=== PATIENT | male | born 1970 | race Caucasian/White ===

== ENCOUNTER 2023-07-07 17:38 | Inpatient (IN) | payer MEDICAID, SELFPAY ==
[2023-07-07 17:56] VITALS: BMI 26.0
--- NOTE | 2023-07-07 18:51 | PC.ADMIT ---
PT is a 53 year old undomiciled male that arrived on this unit at at 17:55 via stretcher from [facility] and was placed on 15 minute safety checks. Legal status: conditional voluntary. PT self presentded to the ED with SI and HI without means, plan or intent. PT refused to participate in the admission process and reports being too tired . PTs mental health hx is unclear from assessment but he has a documented hx of schizophrenia and has AH at baseline. PT was also recently incarcerated per crisis assessment. TOX + for cocaine. COVID NEG. Denies current SI/HI AH/VH, resting in bed, respirations even and unlabored. PT refused to sign legals or participate in safety tool and tx plan.
--- NOTE | 2023-07-07 19:22 | PC.NURSE ---
Skin check completed with Ronny Bowles RN , no contraband found. Scabbed scrapes noted on bilateral lower legs.
[2023-07-07] MEDS: OLANZapine 10 MG TABLET PO (22:51)
[2023-07-07] MEDS: traZODone HCL 50 MG TABLET PO (22:51)
[2023-07-08 08:17] LABS: MANUAL DIFF FLAG NO
[2023-07-08 08:20] LABS: Basophils Percent Auto 0.1 % (0-2); Eosinophils Absolute Auto 0.2 X10*3/uL (0.0-0.4); Eosinophils Percent Auto 2.5 % (0-4); Hematocrit 40.1 % (42.0-52.0); Hemoglobin 13.4 g/dl (14.0-18.0); Imm Gran Abs Auto 0.02 X10*3/uL (0.00-0.03); Imm Gran Pct Auto 0.3 % (0.0-0.4); Lymphocytes Absolute Auto 1.7 X10*3/uL (1.2-4.9); Lymphocytes Percent Auto 25.4 % (20-40); Mean Corpuscular HGB Conc 33.4 g/dl (31.0-36.0); Mean Corpuscular Hemoglobin 31.3 pg (27.0-33.0); Mean Corpuscular Volume 93.7 fL (80.0-98.0); Mean Platelet Volume 8.9 fL (9.4-12.4); Monocytes Absolute Auto 0.6 X10*3/uL (0.1-1.2); Monocytes Percent Auto 9.1 % (2-11); Neutrophils Absolute Auto 4.3 x10*3/uL (2.0-8.3); Neutrophils Percent Auto 62.6 % (45-73); Platelet Count 218 X10*3/uL (160-400); Red Blood Count 4.28 X10*6/uL (4.60-5.80); Red Cell Distribution Width 13.5 % (11.0-16.0); White Blood Count 6.8 X10*3/uL (4.8-10.8)
[2023-07-08 08:39] LABS: Estimated Average Glucose 114 mg/dL; Hemoglobin A1c % 5.6 % (<6.0)
[2023-07-08 08:40] VITALS: BP 137/78; PULSE 57; RESP 16; TEMP 36.6; O2SAT 95
[2023-07-08 08:42] LABS: Alanine Aminotransferase 28 U/L (0-40); Albumin Level 3.3 g/dL (3.5-5.0); Alkaline Phosphatase 89 U/L (39-117); Anion Gap 9 (12-20); Aspartate Amino Transferase 26 U/L (5-37); Bilirubin Direct 0.1 mg/dL (0.0-0.5); Bilirubin Total 0.4 mg/dL (0.0-1.0); Blood Urea Nitrogen 13 mg/dL (9-16); Carbon Dioxide 25 mmol/L (22-29); Chloride 113 mmol/L (96-108); Cholesterol 107 mg/dL (<200); Creatinine Clr Calc Pharmacy 113.4; Estimated Glomerular Filt Rate > 60; Glucose Fasting 134 mg/dL (60-99); HDL Cholesterol 40 mg/dL (>40); LDL Cholesterol Calculated 49 mg/dL (<100); Potassium 4.1 mmol/L (3.3-5.1); Sodium 143 mmol/L (135-145); Triglycerides 91 mg/dL (<150)
[2023-07-08 08:56] LABS: Free T4 (Free Thyroxine) 0.75 ng/dL (0.71-1.85); Thyroid Stimulating Hormone 0.57 uIU/mL (0.32-4.0)
[2023-07-08 09:10] LABS: Folate 5.9 ng/mL (> or = 4.0); Vitamin B12 305 pg/mL (200-900)
--- NOTE | 2023-07-08 09:55 | P.HPPS_ITS ---
HPI Date of Service: 07/08/23 Chief Complaint: Schizophrenia F29 Sources of Information: patient interviewed, chart reviewed and crisis/core team assessment reviewed HPI Subjective Notes: Conditional Voluntary and 3 Day Narrative: Patient is a 53-year-old male with history of schizophrenia, alcoholism, incarceration who presents for paranoid delusions with SI and HI. On approach patient is lying in bed, awake with covers over his eyes; he is irritable and says he does not want to talk much today but perhaps tomorrow. Discussed legal paperwork; pt agrees to continue taking Zyprexa which he received at the [facility] [place] [facility] Information is taken from other staff and notes. Patient irritable on admission but reports that he and his family are being targeted by gang bangers the bloods in retaliation for him having stolen millions of dollars. He endorses AH. He refers to a dude as the person's spear heading this persecution and that this person was at a camp were kids were involved and oral sex... Patient has HI towards this group of persecutory is though he does not name any of them. He says they are holding his mother and his sister hostage, drugging them; however he also says that team can call his sister for collateral information. He says he called her sometimes to check up on her and see how she is doing. Patient had made some comments about blowing up the city; he thinks people are laughing at him. Social work discussed case with his sister who said that he was diagnosed with schizophrenia when he was incarcerated a few years ago; has a history of substance abuse and can sometimes become aggressive, steal and lie. She does not remember him being paranoid in the past however. She gave a list of medications that he has been on, All last filled in February for 90 day supply (she does not know if he is adherent) Atorvastatin 80mg QD Hydrochlorothiazide 12.5mg QD Losartan 50mg QD Fluoxetine 40mg QD Amlodipine 10mg QD Metformin 500mg- last picked up October Past Psychiatric History: Past psychiatric hospitalizations Medical Evaluation Reviewed: Hospitalist Eva Pending COUNT INCLUDES [facility] Medical History (Updated 07/09/23 @ 13:05 by Go Boyle MD) Cocaine use disorder Alcohol use disorder Schizophrenia Polysubstance use disorder HLD (hyperlipidemia) HTN (hypertension) Family History: Deferred Social History: Currently homeless Has a sister who is supportive History of being incarcerated Substance History: Cocaine; alcohol Trauma History: Deferred Diagnostics Vital Signs (24Hr): Vital Signs - 24 hr 07/08/23 08:40 Temperature 97.9 F Pulse Rate 57 Respiratory Rate 16 Blood Pressure 137/78 Pulse Oximetry 95 Oxygen Delivery Method Room Air BMI result Body Mass Index 26.0 Labs 07/08/23 08:14 07/08/23 08:14 Labs: Laboratory Results - last 48 hr 07/08/23 08:14 WBC 6.8 RBC 4.28 L Hgb 13.4 L Hct 40.1 L MCV 93.7 MCH 31.3 MCHC 33.4 RDW 13.5 Plt Count 218 MPV 8.9 L Immature Gran % (Auto) 0.3 Neut % (Auto) 62.6 Lymph % (Auto) 25.4 [place] % (Auto) 9.1 Eos % (Auto) 2.5 Baso % (Auto) 0.1 Lymph # (Auto) 1.7 [place] # (Auto) 0.6 Eos # (Auto) 0.2 Baso # (Auto) 0.0 Abs Immat Gran (auto) 0.02 Absolute Neuts (auto) 4.3 Absolute Nucleated RBC 0.000 Nucleated RBC % (auto) 0.0 Sodium 143 Potassium 4.1 Chloride 113 H Carbon Dioxide 25 Anion Gap 9 L BUN 13 Creatinine 0.77 Estim Creat Clear Calc 113.4 Estimated GFR > 60 Fasting Glucose 134 H Estimat Average Glucose 114 Hemoglobin A1c % 5.6 Calcium 9.0 Total Bilirubin 0.4 Direct Bilirubin 0.1 AST 26 ALT 28 Alkaline Phosphatase 89 Total Protein 6.0 L Albumin 3.3 L Triglycerides 91 Cholesterol 107 LDL Cholesterol, Calc 49 HDL Cholesterol 40 L Vitamin B12 305 Folate 5.9 TSH 0.57 Free T4 0.75 Meds/Allergies Allergies Allergies Allergy/AdvReac Type Severity Reaction Status Date / Time Penicillins Allergy Rash Verified 07/07/23 17:57 Mental Status Exam Mental Status Exam Narrative: Pt is alert and oriented; behavior is irritable and guarded, marginally cooperative; patient is not in distress; dressed in hospital attire, balding; mood is described as irritable and affect congruent, constricted; eye contact limited; Speech is normal rate, volume and prosody and not pressured; some psychomotor agitation present; thought process is goal directed; Thought content is on paranoid delusions; yes to SI/HI; Positive for AH Patients insight and judgment impaired Assessment & Plan Assessment & Plan (1) Schizophrenia: Status: Acute Code(s): F20.9 - Schizophrenia, unspecified (2) Alcohol use disorder: Status: Acute Code(s): F10.90 - Alcohol use, unspecified, uncomplicated (3) Cocaine use disorder: Status: Acute Code(s): F14.10 - Cocaine abuse, uncomplicated (4) HTN (hypertension): Status: Acute Code(s): I10 - Essential (primary) hypertension (5) HLD (hyperlipidemia): Status: Acute Code(s): E78.5 - Hyperlipidemia, unspecified Plan Patient is a 53-year-old male with history of schizophrenia, alcoholism, incarceration who presents for paranoid delusions with SI and HI. On approach patient is lying in bed, awake with covers over his eyes; he is irritable and says he does not want to talk much today but perhaps tomorrow. Discussed legal paperwork; pt agrees to continue taking Zyprexa which he received at the [facility] for coming [place] [facility] Information is taken from other staff and notes. Patient irritable on admission but reports that he and his family are being targeted by gang bangers the bloods in retaliation for him having stolen millions of dollars. He endorses AH. He refers to a dude as the person's spear heading this persecution and that this person was at a camp were kids were involved and oral sex... Patient has HI towards this group of persecutory is though he does not name any of them. He says they are holding his mother and his sister hostage, drugging them; however he also says that team can call his sister for collateral information. He says he called her sometimes to check up on her and see how she is doing. Patient had made some comments about blowing up the city; he thinks people are laughing at him. Social work discussed case with his sister who said that he was diagnosed with schizophrenia when he was incarcerated a few years ago; has a history of substance abuse and can sometimes become aggressive, steal and lie. She does not remember him being paranoid in the past however. She gave a list of medications that he has been on, All last filled in February for 90 day supply (she does not know if he is adherent) Atorvastatin 80mg QD Hydrochlorothiazide 12.5mg QD Losartan 50mg QD Fluoxetine 40mg QD Amlodipine 10mg QD Metformin 500mg- last picked up October PLAN: CV Q 15 minute checks CIWA with p.r.n. Ativan Continue Zyprexa 10 mg q.h.s. Will add Zyprexa 5 mg in the morning Hold off on Prozac for now Will hold off on other home medications for hospitalist assessment Reviewed labs from sending facility: CBC, lytes, BUN/creatinine, LFTs WNL EKG with T-wave inversion however troponins x2 grossly WNL UDS cocaine Patient educated on: diagnosis Informed Consent: understands and further education needed Reason for continued inpatient stay Substantial Risk for: harm to self, harm to others and inability to function Statement Statement: I have reviewed the history and physical and performed a pertinent examination on my patient. No changes have occurred unless specified. If the History and Physical was not performed prior to admission, the Hospitalist's service will be consulted for completing the admission physical. Time Spent With Patient Time: Total time managing care of this patient today ____ minutes.
[2023-07-08] MEDS: LORazepam 1 MG TABLET PO (10:12)
[2023-07-08] MEDS: Acetaminophen 325 MG TABLET 650 MG PO (10:12)
--- NOTE | 2023-07-08 14:34 | HO.PM.IMCN ---
History of Present Illness Data of Consult Service Date: 07/08/23 Primary Care Provider: Unknown Physician HPI Reason for consult: Admission H&P Pt is a 53-year-old male with a PMH significant for?HTN, HLD, polysubstance use disorder, and schizophrenia not currently on home medications who is admitted to [facility] unit for increasing depression with vague SI and HI with thought to [place] up [place] city [place] city . Medical consult for admission H&P. ?Pt states he has no acute medical complaints at this time. Denies chest pain/palpitations. No shortness of breath. Denies fever, chills, nausea, vomiting, abdominal pain. No change to bowel or bladder habits. No lightheadedness or dizziness. Patient does report smoking 1 pack of cigarettes daily, and history of alcohol use though he does not further specify how much. Also reports recently smoking crack cocaine with fentanyl 2-3 days ago. Labs reviewed, largely unremarkable. Vital signs stable. Of note, pt is not completely cooperative with exam, refusing to fully participate. Review of Systems Review of Systems: Patient has no complaints at this time [facility] Medical History (Updated 07/08/23 @ 22:37 by AARON Dupree) Schizophrenia Polysubstance use disorder HLD (hyperlipidemia) HTN (hypertension) Social History Household Members: None Housing: Homeless Do you presently have visiting nurse or other home services: No Patient Tobacco Use Status: Former Tobacco user Smoked in Last 30 Days: No Use of substances other than those prescribed or required for medical reasons: Yes Substance Use Type: Crack/Cocaine Substance Use Frequency: Chronic Longstanding Last Used Substance: Just Prior to Admission Currently Displaying Signs/Symptoms of Drug Intoxication Withdrawal: No Any prior treatment program specific to substance use: No Do you feel safe in your current relationship?: No Current Relationship Advance Directives: No Advance Directives Information Provided: No Do you have thoughts of harming others: None Do you have a plan to hurt others: No Plan Recently lost weight without trying: No Nutrition Risks: No Nutritional Risk Poor oral hygiene: Yes Meds Allergies Allergy/AdvReac Type Severity Reaction Status Date / Time Penicillins Allergy Rash Verified 07/07/23 17:57 Active Medications: Current Medications Acetaminophen (Acetaminophen 325 Mg Tablet) 650 mg PO Q6H PRN PRN Reason: Headache/Pain Mild Scale (1-3) Last Admin: 07/08/23 10:12 Dose: 650 mg Al Hydroxide/Mg Hydroxide (Magnesium Hydrox/Alum Hydrox 30 Ml Oral.Susp) 30 ml PO Q6H PRN PRN Reason: Heartburn/Nausea Hydroxyzine HCl (Hydroxyzine Hcl 25 Mg Tablet) 25 mg PO Q6H PRN PRN Reason: Anxiety Lorazepam (Lorazepam 1 Mg Tablet) 1 mg PO Q2H PRN PRN Reason: CIWA 6-10 Last Admin: 07/08/23 10:12 Dose: 1 mg Lorazepam (Lorazepam 1 Mg Tablet) 2 mg PO Q2H PRN PRN Reason: CIWA 11 and above Magnesium Hydroxide (Milk Of Magnesia 30 Ml Oral.Susp) 30 ml PO DAILY PRN PRN Reason: Constipation Nicotine Polacrilex (Nicotine Polacrilex 2 Mg Gum) 4 mg BUCCAL Q2H PRN PRN Reason: Nicotine Cravings Olanzapine (Olanzapine 10 Mg Tablet) 10 mg PO BEDTIME RAJESH Olanzapine (Olanzapine 5 Mg Tablet) 5 mg PO DAILY RAJESH Trazodone HCl (Trazodone Hcl 50 Mg Tablet) 50 mg PO BEDTIME MRX1 PRN PRN Reason: Insomnia Last Admin: 07/07/23 22:51 Dose: 50 mg Physical Exam Vital Signs and Narrative: Vital Signs: Last Vital Signs Temp 97.9 F 07/08/23 08:40 Pulse 57 07/08/23 08:40 Resp 16 07/08/23 08:40 BP 137/78 07/08/23 08:40 Pulse Ox 95 07/08/23 08:40 O2 Del Method Room Air 07/08/23 08:40 BMI result Body Mass Index 26.0 General: AOx3, no acute distress Resp: CTA bilaterally CVS: S1, S2, RRR GI: +BS, NT, no distention Skin: Warm, dry Neuro: Cranial nerves II-XII grossly intact bilaterally. Motor grossly intact bilaterally Extremities: No edema Psych: Flat affect Results Labs 07/08/23 08:14 07/08/23 08:14 Labs: Laboratory Results - last 24 hr 07/08/23 08:14 MCV 93.7 MCH 31.3 MCHC 33.4 RDW 13.5 Plt Count 218 MPV 8.9 L Immature Gran % (Auto) 0.3 Neut % (Auto) 62.6 Lymph % (Auto) 25.4 [place] % (Auto) 9.1 Eos % (Auto) 2.5 Baso % (Auto) 0.1 Lymph # (Auto) 1.7 [place] # (Auto) 0.6 Eos # (Auto) 0.2 Baso # (Auto) 0.0 Abs Immat Gran (auto) 0.02 Absolute Neuts (auto) 4.3 Absolute Nucleated RBC 0.000 Nucleated RBC % (auto) 0.0 Anion Gap 9 L Estim Creat Clear Calc 113.4 Estimated GFR > 60 Fasting Glucose 134 H Estimat Average Glucose 114 Hemoglobin A1c % 5.6 Calcium 9.0 Total Bilirubin 0.4 Direct Bilirubin 0.1 AST 26 ALT 28 Alkaline Phosphatase 89 Total Protein 6.0 L Albumin 3.3 L Triglycerides 91 Cholesterol 107 LDL Cholesterol, Calc 49 HDL Cholesterol 40 L Vitamin B12 305 Folate 5.9 TSH 0.57 Free T4 0.75 Assessment and Plan (1) Medical clearance for psychiatric admission: Status: Acute Plan Pt is a 53-year-old male with a PMH significant for?HTN, HLD, polysubstance use disorder, and schizophrenia not currently on home medications who is admitted to [facility] unit for increasing depression with vague SI and HI with thought to blow up [place] city and [place] city . Medical consult for admission H&P. ?Pt states he has no acute medical complaints at this time. Mood disorder Plan as per Psychiatry Polysubstance use disorder Plan as per Psychiatry HTN Currently not on home meds BP reasonably controlled, not hypertensive HLD Currently not on home meds Thank you for allowing us to participate in the care of this patient. Signing off at this time. Please re-consult if any acute complaints or issues arise.
[2023-07-08 20:00] VITALS: BP 140/71; PULSE 72; TEMP 36.9
[2023-07-08] MEDS: traZODone HCL 50 MG TABLET PO (21:34)
[2023-07-08] MEDS: OLANZapine 10 MG TABLET PO (21:34)
[2023-07-09 08:25] VITALS: RESP 16
[2023-07-09] MEDS: FLUoxetine HCl 10 MG CAPSULE PO (10:08)
--- NOTE | 2023-07-09 13:10 | P.PNPSI_ITS ---
Subjective Subjective Date of Service: 07/09/23 Reason For Visit: Schizophrenia F29 Interim History: Met with patient; discussed with team Patient remains very guarded and difficult with which to engage. Glove Presser asked various questions but patient did not answer. Glove Presser then asked was there anything that account underwriter could help with. After a long silence patient said why me? Glove Presser tried to inquire but patient remained guarded. Then started talking to himself. He did take Zyprexa last night and wants to be on Prozac in the morning Mental Status Exam Mental Status Exam Narrative: Pt is alert and oriented; behavior is irritable and guarded, marginally cooperative; patient is not in distress; dressed in hospital attire, balding; mood is described as irritable and affect congruent, constricted; eye contact limited; Speech is normal rate, volume and prosody and not pressured; some psychomotor agitation present; thought process is goal directed; Thought content is on paranoid delusions; yes to SI/HI; Positive for AH Patients insight and judgment impaired Diagnostics Vital Signs (24Hr): Vital Signs - 24 hr 07/08/23 20:00 07/09/23 08:25 Temperature 98.4 F Pulse Rate 72 Respiratory Rate 16 Blood Pressure 140/71 H BMI result Body Mass Index 26.0 Labs 07/08/23 08:14 07/08/23 08:14 Labs: Laboratory Results - last 48 hr 07/08/23 08:14 WBC 6.8 RBC 4.28 L Hgb 13.4 L Hct 40.1 L MCV 93.7 MCH 31.3 MCHC 33.4 RDW 13.5 Plt Count 218 MPV 8.9 L Immature Gran % (Auto) 0.3 Neut % (Auto) 62.6 Lymph % (Auto) 25.4 [place] % (Auto) 9.1 Eos % (Auto) 2.5 Baso % (Auto) 0.1 Lymph # (Auto) 1.7 [place] # (Auto) 0.6 Eos # (Auto) 0.2 Baso # (Auto) 0.0 Abs Immat Gran (auto) 0.02 Absolute Neuts (auto) 4.3 Absolute Nucleated RBC 0.000 Nucleated RBC % (auto) 0.0 Sodium 143 Potassium 4.1 Chloride 113 H Carbon Dioxide 25 Anion Gap 9 L BUN 13 Creatinine 0.77 Estim Creat Clear Calc 113.4 Estimated GFR > 60 Fasting Glucose 134 H Estimat Average Glucose 114 Hemoglobin A1c % 5.6 Calcium 9.0 Total Bilirubin 0.4 Direct Bilirubin 0.1 AST 26 ALT 28 Alkaline Phosphatase 89 Total Protein 6.0 L Albumin 3.3 L Triglycerides 91 Cholesterol 107 LDL Cholesterol, Calc 49 HDL Cholesterol 40 L Vitamin B12 305 Folate 5.9 TSH 0.57 Free T4 0.75 Medications Medications Current Medications Acetaminophen (Acetaminophen 325 Mg Tablet) 650 mg PO Q6H PRN PRN Reason: Headache/Pain Mild Scale (1-3) Last Admin: 07/08/23 10:12 Dose: 650 mg Al Hydroxide/Mg Hydroxide (Magnesium Hydrox/Alum Hydrox 30 Ml Oral.Susp) 30 ml PO Q6H PRN PRN Reason: Heartburn/Nausea Fluoxetine HCl (Fluoxetine Hcl 10 Mg Capsule) 10 mg PO DAILY [facility] Last Admin: 07/09/23 10:08 Dose: 10 mg Hydroxyzine HCl (Hydroxyzine Hcl 25 Mg Tablet) 25 mg PO Q6H PRN PRN Reason: Anxiety Lorazepam (Lorazepam 1 Mg Tablet) 1 mg PO Q2H PRN PRN Reason: CIWA 6-10 Last Admin: 07/08/23 10:12 Dose: 1 mg Lorazepam (Lorazepam 1 Mg Tablet) 2 mg PO Q2H PRN PRN Reason: CIWA 11 and above Magnesium Hydroxide (Milk Of Magnesia 30 Ml Oral.Susp) 30 ml PO DAILY PRN PRN Reason: Constipation Nicotine Polacrilex (Nicotine Polacrilex 2 Mg Gum) 4 mg BUCCAL Q2H PRN PRN Reason: Nicotine Cravings Olanzapine (Olanzapine 10 Mg Tablet) 10 mg PO BEDTIME [facility] Last Admin: 07/08/23 21:34 Dose: 10 mg Olanzapine (Olanzapine 5 Mg Tablet) 5 mg PO DAILY [facility] Last Admin: 07/09/23 08:18 Dose: Not Given Trazodone HCl (Trazodone Hcl 50 Mg Tablet) 50 mg PO BEDTIME MRX1 PRN PRN Reason: Insomnia Last Admin: 07/08/23 21:34 Dose: 50 mg Allergies Allergies Allergy/AdvReac Type Severity Reaction Status Date / Time Penicillins Allergy Rash Verified 07/07/23 17:57 Assessment & Plan Assessment & Plan (1) Schizophrenia: Status: Acute Code(s): F20.9 - Schizophrenia, unspecified (2) Alcohol use disorder: Status: Acute Code(s): F10.90 - Alcohol use, unspecified, uncomplicated (3) Cocaine use disorder: Status: Acute Code(s): F14.10 - Cocaine abuse, uncomplicated (4) HTN (hypertension): Status: Acute Code(s): I10 - Essential (primary) hypertension (5) HLD (hyperlipidemia): Status: Acute Code(s): E78.5 - Hyperlipidemia, unspecified Plan Patient is a 53-year-old male with history of schizophrenia, alcoholism, incarceration who presents for paranoid delusions with SI and HI. On approach patient is lying in bed, awake with covers over his eyes; he is irritable and says he does not want to talk much today but perhaps tomorrow. Discussed legal paperwork; pt agrees to continue taking Zyprexa which he received at [facility] for coming to [facility]. Information is taken from other staff and notes. Patient irritable on admission but reports that he and his family are being targeted by gang bangers the bloods in retaliation for him having stolen millions of dollars. He endorses AH. He refers to a dude as the person's spear heading this persecution and that this person was at a camp were kids were involved and oral sex... Patient has HI towards this group of persecutory is though he does not name any of them. He says they are holding his mother and his sister hostage, drugging them; however he also says that team can call his sister for collateral information. He says he called her sometimes to check up on her and see how she is doing. Patient had made some comments about blowing up the city; he thinks people are laughing at him. Social work discussed case with his sister who said that he was diagnosed with schizophrenia when he was incarcerated a few years ago; has a history of substance abuse and can sometimes become aggressive, steal and lie. She does not remember him being paranoid in the past however. She gave a list of medications that he has been on, All last filled in February for 90 day supply (she does not know if he is adherent) Atorvastatin 80mg QD Hydrochlorothiazide 12.5mg QD Losartan 50mg QD Fluoxetine 40mg QD Amlodipine 10mg QD Metformin 500mg- last picked up October Hospital course: Patient remains guarded, with psychotic symptoms, internally preoccupied and difficult with which to engage. Will increase Zyprexa PLAN: CV Q 15 minute checks DC CIWA as patient is hardly scoring Increase to Zyprexa 15 mg q.h.s. Prozac 10 mg daily currently blood pressure, lipids and hemoglobin A1c WNL; thus will not restart statin, BP meds, metformin at this time Reviewed labs from sending facility: CBC, lytes, BUN/creatinine, LFTs WNL EKG with T-wave inversion however troponins x2 grossly WNL UDS cocaine Patient educated on: diagnosis and medication risk/benefits Informed Consent: further education needed Reason for continued inpatient stay Substantial Risk for: inability to function Time Spent With Patient Time: Total time managing care of this patient today ____ minutes.
[2023-07-09 16:19] VITALS: BP 138/79; PULSE 64; RESP 16; TEMP 36.2; O2SAT 96
[2023-07-09] MEDS: OLANZapine 7.5 MG TABLET 15 MG PO (19:49)
[2023-07-10 07:55] VITALS: BP 122/67; PULSE 59; RESP 16; TEMP 36.8; O2SAT 97
[2023-07-10] MEDS: FLUoxetine HCl 10 MG CAPSULE PO (08:23)
--- NOTE | 2023-07-10 08:52 | P.PNPSI_ITS ---
Subjective Subjective Date of Service: 07/10/23 Reason For Visit: Schizophrenia F29 Interim History: met with patient; discussed with team Patient remains isolated to his room and bed, quiet keeping to himself them internally preoccupied. On approach Patient lying in bed awake but reticent. Although still very difficult with which to engage, does not have the same angry edge as he did yesterday. Patient reports that he remains with SI, HI and AH. He does however say that the AH is a little bit better than yesterday. Patient agrees to increase Zyprexa. Mental Status Exam Mental Status Exam Narrative: Pt is alert and oriented; behavior is irritable and guarded, marginally cooperative; patient is not in distress; dressed in hospital attire, balding; mood is described as depressed and irritable and affect congruent, constricted; eye contact limited; Speech is soft; more psychomotor retardation today; thought process is goal directed; Thought content is on paranoid delusions; yes to SI/HI; Positive for AH Patients insight and judgment impaired Diagnostics Vital Signs (24Hr): Vital Signs - 24 hr 07/09/23 16:19 Temperature 97.2 F Pulse Rate 64 Respiratory Rate 16 Blood Pressure 138/79 Pulse Oximetry 96 Oxygen Delivery Method Room Air BMI result Body Mass Index 26.0 Labs 07/08/23 08:14 07/08/23 08:14 Labs: Laboratory Results - last 48 hr 07/08/23 08:14 Vitamin B12 305 Folate 5.9 TSH 0.57 Free T4 0.75 Medications Medications Current Medications Acetaminophen (Acetaminophen 325 Mg Tablet) 650 mg PO Q6H PRN PRN Reason: Headache/Pain Mild Scale (1-3) Last Admin: 07/08/23 10:12 Dose: 650 mg Al Hydroxide/Mg Hydroxide (Magnesium Hydrox/Alum Hydrox 30 Ml Oral.Susp) 30 ml PO Q6H PRN PRN Reason: Heartburn/Nausea Fluoxetine HCl (Fluoxetine Hcl 10 Mg Capsule) 10 mg PO DAILY [facility] Last Admin: 07/10/23 08:23 Dose: 10 mg Hydroxyzine HCl (Hydroxyzine Hcl 25 Mg Tablet) 25 mg PO Q6H PRN PRN Reason: Anxiety Lorazepam (Lorazepam 1 Mg Tablet) 1 mg PO Q2H PRN PRN Reason: CIWA 6-10 Last Admin: 07/08/23 10:12 Dose: 1 mg Lorazepam (Lorazepam 1 Mg Tablet) 2 mg PO Q2H PRN PRN Reason: CIWA 11 and above Magnesium Hydroxide (Milk Of Magnesia 30 Ml Oral.Susp) 30 ml PO DAILY PRN PRN Reason: Constipation Nicotine Polacrilex (Nicotine Polacrilex 2 Mg Gum) 4 mg BUCCAL Q2H PRN PRN Reason: Nicotine Cravings Olanzapine (Olanzapine 7.5 Mg Tablet) 15 mg PO BEDTIME RAJESH Last Admin: 07/09/23 19:49 Dose: 15 mg Trazodone HCl (Trazodone Hcl 50 Mg Tablet) 50 mg PO BEDTIME MRX1 PRN PRN Reason: Insomnia Last Admin: 07/08/23 21:34 Dose: 50 mg Allergies Allergies Allergy/AdvReac Type Severity Reaction Status Date / Time Penicillins Allergy Rash Verified 07/07/23 17:57 Assessment & Plan Assessment & Plan (1) Schizophrenia: Status: Acute Code(s): F20.9 - Schizophrenia, unspecified (2) Alcohol use disorder: Status: Acute Code(s): F10.90 - Alcohol use, unspecified, uncomplicated (3) Cocaine use disorder: Status: Acute Code(s): F14.10 - Cocaine abuse, uncomplicated (4) HTN (hypertension): Status: Acute Code(s): I10 - Essential (primary) hypertension (5) HLD (hyperlipidemia): Status: Acute Code(s): E78.5 - Hyperlipidemia, unspecified Plan Patient is a 53-year-old male with history of schizophrenia, alcoholism, incarceration who presents for paranoid delusions with SI and HI. On approach patient is lying in bed, awake with covers over his eyes; he is irritable and says he does not want to talk much today but perhaps tomorrow. Discussed legal paperwork; pt agrees to continue taking Zyprexa which he received at the [facility] for coming to [facility] [place]. Information is taken from other staff and notes. Patient irritable on admission but reports that he and his family are being targeted by ganjf mataers the bloods in retaliation for him having stolen millions of dollars. He endorses AH. He refers to a dude as the person's spear heading this persecution and that this person was at a camp were kids were involved and oral sex... Patient has HI towards this group of persecutory is though he does not name any of them. He says they are holding his mother and his sister hostage, drugging them; however he also says that team can call his sister for collateral information. He says he called her sometimes to check up on her and see how she is doing. Patient had made some comments about blowing up the city; he thinks people are laughing at him. Social work discussed case with his sister who said that he was diagnosed with schizophrenia when he was incarcerated a few years ago; has a history of substance abuse and can sometimes become aggressive, steal and lie. She does not remember him being paranoid in the past however. She gave a list of medications that he has been on, All last filled in February for 90 day supply (she does not know if he is adherent) Atorvastatin 80mg QD Hydrochlorothiazide 12.5mg QD Losartan 50mg QD Fluoxetine 40mg QD Amlodipine 10mg QD Metformin 500mg- last picked up October Hospital course: Patient remains guarded, with psychotic symptoms, internally preoccupied and difficult with which to engage. Will increase Zyprexa 07/10 Patient remains isolated to his room and bed, quiet keeping to himself them internally preoccupied. On approach Patient lying in bed awake but reticent. Although still very difficult with which to engage, does not have the same angry edge as he did yesterday. Patient reports that he remains with SI, HI and AH. He does however say that the AH is a little bit better than yesterday. Patient agrees to increase Zyprexa. -will leave it Zyprexa 15 mg for now as it has only been 1 day at higher dose; but will consider increasing soon if clinically indicated PLAN: CV Q 15 minute checks DC CIWA as patient is hardly scoring Continue Zyprexa 15 mg q.h.s. Prozac 10 mg daily currently blood pressure, lipids and hemoglobin A1c WNL; thus will not restart statin, BP meds, metformin at this time Reviewed labs from sending facility: CBC, lytes, BUN/creatinine, LFTs WNL EKG with T-wave inversion however troponins x2 grossly WNL UDS cocaine Patient educated on: diagnosis and medication risk/benefits Informed Consent: understands and further education needed Reason for continued inpatient stay Substantial Risk for: harm to self, harm to others and inability to function Time Spent With Patient Time: Total time managing care of this patient today ____ minutes.
[2023-07-10 17:37] VITALS: BP 145/85; PULSE 65; RESP 18; TEMP 36.5; O2SAT 99
[2023-07-10] MEDS: OLANZapine 7.5 MG TABLET 15 MG PO (20:48)
[2023-07-11] MEDS: FLUoxetine HCl 10 MG CAPSULE PO (09:00)
[2023-07-11 09:01] VITALS: BP 123/75; PULSE 56; RESP 16; TEMP 36.3; O2SAT 97
--- NOTE | 2023-07-11 10:22 | HO.PSYCHPN ---
Subjective Subjective Date of Service: 07/11/23 Reason For Visit: Schizophrenia F29 Interim History: met with patient; discussed with team Patient remains isolative, staying in bed by himself much of the day. Still quite an angry presentation however not so much with staff and was willing to talk a little more with account underwriter. Still has AH but maybe a little less. Sleeping well enough. Patient said that he still has some SI but he still has a lot of anger towards other people out there. Patient remains unintentionally vague about the specifics. He started saying blame me? Blame me? Am I to blame if the drugs are here? I am an addict.... stop Bringing the drugs into the [place].... Someone got angry and gave an order, a gang, to orchestrate some stuff... Because I took a million dollars? He said that there is someone who got angry at him so they did something or regard to do something... The account underwriter did not mention this, it seems likely these comments refer to paranoid delusional idea that his mother and sister are being held captive... Mental Status Exam Mental Status Exam Narrative: Pt is alert and oriented; behavior is irritable and guarded, marginally cooperative; patient is not in distress; dressed in hospital attire, balding; mood is described as depressed and irritable and affect congruent, constricted; eye contact limited; Speech is soft; more psychomotor retardation today; thought process is goal directed; Thought content is on paranoid delusions; yes to SI/HI; Positive for AH Patients insight and judgment impaired Diagnostics Vital Signs (24Hr): Vital Signs - 24 hr 07/10/23 17:37 07/11/23 09:01 Temperature 97.7 F 97.3 F Pulse Rate 65 56 Respiratory Rate 18 16 Blood Pressure 145/85 H 123/75 Pulse Oximetry 99 97 Oxygen Delivery Method Room Air Room Air BMI result Body Mass Index 26.0 Labs 07/08/23 08:14 07/08/23 08:14 Medications Medications Current Medications Acetaminophen (Acetaminophen 325 Mg Tablet) 650 mg PO Q6H PRN PRN Reason: Headache/Pain Mild Scale (1-3) Last Admin: 07/08/23 10:12 Dose: 650 mg Al Hydroxide/Mg Hydroxide (Magnesium Hydrox/Alum Hydrox 30 Ml Oral.Susp) 30 ml PO Q6H PRN PRN Reason: Heartburn/Nausea Fluoxetine HCl (Fluoxetine Hcl 10 Mg Capsule) 10 mg PO DAILY [facility]JESH Last Admin: 07/11/23 09:00 Dose: 10 mg Hydroxyzine HCl (Hydroxyzine Hcl 25 Mg Tablet) 25 mg PO Q6H PRN PRN Reason: Anxiety Magnesium Hydroxide (Milk Of Magnesia 30 Ml Oral.Susp) 30 ml PO DAILY PRN PRN Reason: Constipation Nicotine Polacrilex (Nicotine Polacrilex 2 Mg Gum) 4 mg BUCCAL Q2H PRN PRN Reason: Nicotine Cravings Olanzapine (Olanzapine 7.5 Mg Tablet) 15 mg PO BEDTIME RAJESH Last Admin: 07/10/23 20:48 Dose: 15 mg Trazodone HCl (Trazodone Hcl 50 Mg Tablet) 50 mg PO BEDTIME MRX1 PRN PRN Reason: Insomnia Last Admin: 07/08/23 21:34 Dose: 50 mg Allergies Allergies Allergy/AdvReac Type Severity Reaction Status Date / Time Penicillins Allergy Rash Verified 07/07/23 17:57 Assessment & Plan Assessment & Plan (1) Schizophrenia: Status: Acute Code(s): F20.9 - Schizophrenia, unspecified (2) Alcohol use disorder: Status: Acute Code(s): F10.90 - Alcohol use, unspecified, uncomplicated (3) Cocaine use disorder: Status: Acute Code(s): F14.10 - Cocaine abuse, uncomplicated (4) HTN (hypertension): Status: Acute Code(s): I10 - Essential (primary) hypertension (5) HLD (hyperlipidemia): Status: Acute Code(s): E78.5 - Hyperlipidemia, unspecified Plan Patient is a 53-year-old male with history of schizophrenia, alcoholism, incarceration who presents for paranoid delusions with SI and HI. On approach patient is lying in bed, awake with covers over his eyes; he is irritable and says he does not want to talk much today but perhaps tomorrow. Discussed legal paperwork; pt agrees to continue taking Zyprexa which he received at the [facility] for coming to [facility]. Information is taken from other staff and notes. Patient irritable on admission but reports that he and his family are being targeted by gang bangers the bloods in retaliation for him having stolen millions of dollars. He endorses AH. He refers to a dude as the person's spear heading this persecution and that this person was at a camp were kids were involved and oral sex... Patient has HI towards this group of persecutory is though he does not name any of them. He says they are holding his mother and his sister hostage, drugging them; however he also says that team can call his sister for collateral information. He says he called her sometimes to check up on her and see how she is doing. Patient had made some comments about blowing up the city; he thinks people are laughing at him. Social work discussed case with his sister who said that he was diagnosed with schizophrenia when he was incarcerated a few years ago; has a history of substance abuse and can sometimes become aggressive, steal and lie. She does not remember him being paranoid in the past however. She gave a list of medications that he has been on, All last filled in February for 90 day supply (she does not know if he is adherent) Atorvastatin 80mg QD Hydrochlorothiazide 12.5mg QD Losartan 50mg QD Fluoxetine 40mg QD Amlodipine 10mg QD Metformin 500mg- last picked up October Hospital course: Patient remains guarded, with psychotic symptoms, internally preoccupied and difficult with which to engage. Will increase Zyprexa 07/10 Patient remains isolated to his room and bed, quiet keeping to himself them internally preoccupied. On approach Patient lying in bed awake but reticent. Although still very difficult with which to engage, does not have the same angry edge as he did yesterday. Patient reports that he remains with SI, HI and AH. He does however say that the AH is a little bit better than yesterday. Patient agrees to increase Zyprexa. -will leave it Zyprexa 15 mg for now as it has only been 1 day at higher dose; but will consider increasing soon if clinically indicated 07/11 Patient remains isolative, staying in bed by himself much of the day. Still quite an angry presentation however not so much with staff and was willing to talk a little more with account underwriter. Still has AH but maybe a little less. Sleeping well enough. Patient said that he still has some SI but he still has a lot of anger towards other people out there. Patient remains unintentionally vague about the specifics. He started saying blame me? Blame me? Am I to blame if the drugs are here? I am an addict.... stop Bringing the drugs into the [place].... Someone got angry and gave an order, a gang, to orchestrate some stuff... Because I took a million dollars? He said that there is someone who got angry at him so they did something or regard to do something... The account underwriter did not mention this, it seems likely these comments refer to paranoid delusional idea that his mother and sister are being held captive... Increasing Zyprexa to 20 mg PLAN: CV Q 15 minute checks DC CIWA as patient is hardly scorin Increased to Zyprexa 20 mg q.h.s. Prozac 10 mg daily currently blood pressure, lipids and hemoglobin A1c WNL; thus will not restart statin, BP meds, metformin at this time Reviewed labs from sending facility: CBC, lytes, BUN/creatinine, LFTs WNL EKG with T-wave inversion however troponins x2 grossly WNL UDS cocaine Patient educated on: diagnosis, medication risk/benefits and substance abuse Informed Consent: does not understand and further education needed Reason for continued inpatient stay Substantial Risk for: inability to function Time Spent With Patient Time: Total time managing care of this patient today ____ minutes.
[2023-07-11 17:20] VITALS: BP 133/85; PULSE 83; RESP 16; TEMP 36.4; O2SAT 97
[2023-07-11] MEDS: traZODone HCL 50 MG TABLET PO (21:01)
[2023-07-11] MEDS: OLANZapine 10 MG TABLET 20 MG PO (21:01)
[2023-07-12 08:00] VITALS: BP 139/74; PULSE 59; TEMP 36.6; O2SAT 97
[2023-07-12] MEDS: FLUoxetine HCl 10 MG CAPSULE PO (08:50)
--- NOTE | 2023-07-12 16:40 | P.PNPSI_ITS ---
Subjective Subjective Date of Service: 07/12/23 Reason For Visit: Schizophrenia F29 Interim History: Met with patient; discussed with team Patient up in out of the room, in the milieu. He says he is doing much better. He says all AH have ceased that he is no longer hearing voices; he denies any SI and says he is no longer feeling angry at others, without any HI, saying you have to let your anger go... No paranoid delusions expressed. Patient would like discharge. He wants discharge immediately. He says I am better... I do not hurt myself, I do not hurt anyone else... I have no voices... I am better, let me go. Patient grudgingly accepts that he will need to remain on the unit for another day to continue demonstrating that he remains stable. Plans to go back to [place], another signed that paranoid delusions have resolved. Mental Status Exam Mental Status Exam Narrative: Pt is alert and oriented; behavior is more friendly and cooperative, initially calm but remains prone to becoming irritable; patient is not in distress; dressed in hospital attire, balding; mood is described as IM better... and affect congruent, brighter, expressive; eye contact limited; Speech is regular volume, rate and prosody; no psychomotor retardation; thought process is goal directed; Thought content is on feeling better, ready for discharge; no SI/HI; no expressed delusional thinking; denies any AVH. Patients insight and judgment impaired but much improved, at baseline and adequate Diagnostics Vital Signs (24Hr): Vital Signs - 24 hr 07/11/23 17:20 07/12/23 08:00 Temperature 97.5 F 97.9 F Pulse Rate 83 59 Respiratory Rate 16 Blood Pressure 133/85 139/74 Pulse Oximetry 97 97 Oxygen Delivery Method Room Air Room Air BMI result Body Mass Index 26.0 Labs 07/08/23 08:14 07/08/23 08:14 Medications Medications Current Medications Acetaminophen (Acetaminophen 325 Mg Tablet) 650 mg PO Q6H PRN PRN Reason: Headache/Pain Mild Scale (1-3) Last Admin: 07/08/23 10:12 Dose: 650 mg Al Hydroxide/Mg Hydroxide (Magnesium Hydrox/Alum Hydrox 30 Ml Oral.Susp) 30 ml PO Q6H PRN PRN Reason: Heartburn/Nausea Fluoxetine HCl (Fluoxetine Hcl 10 Mg Capsule) 10 mg PO DAILY RAJESH Last Admin: 07/12/23 08:50 Dose: 10 mg Hydroxyzine HCl (Hydroxyzine Hcl 25 Mg Tablet) 25 mg PO Q6H PRN PRN Reason: Anxiety Magnesium Hydroxide (Milk Of Magnesia 30 Ml Oral.Susp) 30 ml PO DAILY PRN PRN Reason: Constipation Naloxone HCl (Naloxone Hcl Nasal Take Home 4 Mg [place]) 8 mg NOSTRILALT ONCE ONE Stop: 07/13/23 07:01 Nicotine Polacrilex (Nicotine Polacrilex 2 Mg Gum) 4 mg BUCCAL Q2H PRN PRN Reason: Nicotine Cravings Olanzapine (Olanzapine 10 Mg Tablet) 20 mg PO BEDTIME RAJESH Last Admin: 07/11/23 21:01 Dose: 20 mg Trazodone HCl (Trazodone Hcl 50 Mg Tablet) 50 mg PO BEDTIME MRX1 PRN PRN Reason: Insomnia Last Admin: 07/11/23 21:01 Dose: 50 mg Allergies Allergies Allergy/AdvReac Type Severity Reaction Status Date / Time Penicillins Allergy Rash Verified 07/07/23 17:57 Assessment & Plan Assessment & Plan (1) Schizophrenia: Status: Acute Code(s): F20.9 - Schizophrenia, unspecified (2) Alcohol use disorder: Status: Acute Code(s): F10.90 - Alcohol use, unspecified, uncomplicated (3) Cocaine use disorder: Status: Acute Code(s): F14.10 - Cocaine abuse, uncomplicated (4) HTN (hypertension): Status: Acute Code(s): I10 - Essential (primary) hypertension (5) HLD (hyperlipidemia): Status: Acute Code(s): E78.5 - Hyperlipidemia, unspecified Plan Patient is a 53-year-old male with history of schizophrenia, alcoholism, incarceration who presents for paranoid delusions with SI and HI. On approach patient is lying in bed, awake with covers over his eyes; he is irritable and says he does not want to talk much today but perhaps tomorrow. Discussed legal paperwork; pt agrees to continue taking Zyprexa which he received at the [facility] for coming to [facility] [place]. Information is taken from other staff and notes. Patient irritable on admission but reports that he and his family are being targeted by gang bangers the bloods in retaliation for him having stolen millions of dollars. He endorses AH. He refers to a dude as the person's spear heading this persecution and that this person was at a camp were kids were involved and oral sex... Patient has HI towards this group of persecutory is though he does not name any of them. He says they are holding his mother and his sister hostage, drugging them; however he also says that team can call his sister for collateral information. He says he called her sometimes to check up on her and see how she is doing. Patient had made some comments about blowing up the [employer]; he thinks people are laughing at him. Social work discussed case with his sister who said that he was diagnosed with schizophrenia when he was incarcerated a few years ago; has a history of substance abuse and can sometimes become aggressive, steal and lie. She does not remember him being paranoid in the past however. She gave a list of medications that he has been on, All last filled in February for 90 day supply (she does not know if he is adherent) Atorvastatin 80mg QD Hydrochlorothiazide 12.5mg QD Losartan 50mg QD Fluoxetine 40mg QD Amlodipine 10mg QD Metformin 500mg- last picked up October Hospital course: Patient remains guarded, with psychotic symptoms, internally preoccupied and difficult with which to engage. Will increase Zyprexa 07/10 Patient remains isolated to his room and bed, quiet keeping to himself them internally preoccupied. On approach Patient lying in bed awake but reticent. Although still very difficult with which to engage, does not have the same angry edge as he did yesterday. Patient reports that he remains with SI, HI and AH. He does however say that the AH is a little bit better than yesterday. Patient agrees to increase Zyprexa. -will leave it Zyprexa 15 mg for now as it has only been 1 day at higher dose; but will consider increasing soon if clinically indicated 07/11 Patient remains isolative, staying in bed by himself much of the day. Still quite an angry presentation however not so much with staff and was willing to talk a little more with global technical writer. Still has AH but maybe a little less. Sleeping well enough. Patient said that he still has some SI but he still has a lot of anger towards other people out there. Patient remains unintentionally vague about the specifics. He started saying blame me? Blame me? Am I to blame if the drugs are here? I am an addict.... stop Bringing the drugs into the [place].... Someone got angry and gave an order, a gang, to orchestrate some stuff... Because I took a million dollars? He said that there is someone who got angry at him so they did something or regard to do something... The global technical writer did not mention this, it seems likely these comments refer to paranoid delusional idea that his mother and sister are being held captive... Increasing Zyprexa to 20 mg 07/12 Patient up in out of the room, in the milieu. He says he is doing much better. He says all AH have ceased that he is no longer hearing voices; he denies any SI and says he is no longer feeling angry at others, without any HI, saying you have to let your anger go... No paranoid delusions expressed. Patient would like discharge. He wants discharge immediately. He says I am better... I do not hurt myself, I do not hurt anyone else... I have no voices... I am better, let me go. Patient grudgingly accepts that he will need to remain on the unit for another day to continue demonstrating that he remains stable. Plans to go back to [place], another signed that paranoid delusions have resolved. Based on reporting from his sister, this appears to be patient's baseline. He is not interested in any further treatment at all but says he will continue taking medications which he reports has been helpful. Patient does not want help with any appointments or services but just to discharge home. Patient of course remains at risk for relapse and mood decompensation and given his itinerant lifestyle and struggles with substance abuse, he will likely at some point again wander into unsafe situations. However, his psychotic and mood symptoms have resolved and he is not in imminent risk for harm to self or others. He is already irritable that he has to remain on the unit another day and as he is not looking to engage with any further treatment, staying on the unit longer will not prove useful. Request for discharge honored. PLAN: CV Q 15 minute checks DC CIWA as patient is hardly scorin Continue Zyprexa 20 mg q.h.s. Prozac 10 mg daily currently blood pressure, lipids and hemoglobin A1c WNL; thus will not restart statin, BP meds, metformin at this time Reviewed labs from sending facility: CBC, lytes, BUN/creatinine, LFTs WNL EKG with T-wave inversion however troponins x2 grossly WNL UDS cocaine Patient educated on: diagnosis and medication risk/benefits Informed Consent: understands Reason for continued inpatient stay Substantial Risk for: stable for discharge Time Spent With Patient Time: Total time managing care of this patient today ____ minutes.
--- NOTE | 2023-07-12 17:07 | PM.PSYDC ---
DS: Providers Provider Date of Service: 07/13/23 Date of admission: 07/07/23 17:38 Date of discharge: 07/13/23 Primary care physician: Unknown Physician Attending physician on admission: Go Boyle Consults: 07/07/23 18:03 Consult to Hospitalist Routine Comment: Consulting Provider: Hospitalist Reason For Exam: OSH admission Attending physician on discharge: Go Boyle DS: Diagnosis Discharge Diagnosis (1) Schizophrenia: Status: Acute (2) Alcohol use disorder: Status: Acute (3) Cocaine use disorder: Status: Acute (4) HTN (hypertension): Status: Acute (5) HLD (hyperlipidemia): Status: Acute DS: Medications Discharge Medications Home Medications: Previous Rx's Medication Instructions Recorded fluoxetine 10 mg capsule 10 mg PO DAILY 30 days #30 caps 07/12/23 olanzapine 20 mg tablet 20 mg PO BEDTIME 30 days #30 tabs 07/12/23 olanzapine 20 mg tablet 20 mg PO BEDTIME 30 days #30 tabs 07/12/23 trazodone 50 mg tablet 50 mg PO BEDTIME PRN Insomnia 30 07/12/23 days #30 tabs Mental Status Exam Mental Status Exam Narrative: Pt is alert and oriented; behavior is more friendly and cooperative; patient is not in distress; dressed in casual attire, balding; mood is described as euthymic and affect congruent, brighter, expressive; eye contact appropriate; Speech is regular volume, rate and prosody; no psychomotor retardation; thought process is goal directed; Thought content is on discharge; no SI/HI; no expressed delusional thinking; denies any AVH. Patients insight and judgment impaired but much improved, at baseline and adequate Data Data Completed and Pending Completed studies during hospitalization [Text1]: 07/08/23 08:14 WBC 6.8 RBC 4.28 L Hgb 13.4 L Hct 40.1 L MCV 93.7 MCH 31.3 MCHC 33.4 RDW 13.5 Plt Count 218 MPV 8.9 L Immature Gran % (Auto) 0.3 Neut % (Auto) 62.6 Lymph % (Auto) 25.4 [place] % (Auto) 9.1 Eos % (Auto) 2.5 Baso % (Auto) 0.1 Lymph # (Auto) 1.7 [place] # (Auto) 0.6 Eos # (Auto) 0.2 Baso # (Auto) 0.0 Abs Immat Gran (auto) 0.02 Absolute Neuts (auto) 4.3 Absolute Nucleated RBC 0.000 Nucleated RBC % (auto) 0.0 Sodium 143 Potassium 4.1 Chloride 113 H Carbon Dioxide 25 Anion Gap 9 L BUN 13 Creatinine 0.77 Estim Creat Clear Calc 113.4 Estimated GFR > 60 Fasting Glucose 134 H Estimat Average Glucose 114 Hemoglobin A1c % 5.6 Calcium 9.0 Total Bilirubin 0.4 Direct Bilirubin 0.1 AST 26 ALT 28 Alkaline Phosphatase 89 Total Protein 6.0 L Albumin 3.3 L Triglycerides 91 Cholesterol 107 LDL Cholesterol, Calc 49 HDL Cholesterol 40 L Vitamin B12 305 Folate 5.9 TSH 0.57 Free T4 0.75 DS: Summary Hospital Course Hospital Course: Patient is a 53-year-old male with history of schizophrenia, alcoholism, incarceration who presents for paranoid delusions with SI and HI. On approach patient is lying in bed, awake with covers over his eyes; he is irritable and says he does not want to talk much today but perhaps tomorrow. Discussed legal paperwork; pt agrees to continue taking Zyprexa which he received at the [facility] for coming to [facility]. Information is taken from other staff and notes. Patient irritable on admission but reports that he and his family are being targeted by gang bangers the bloods in retaliation for him having stolen millions of dollars. He endorses AH. He refers to a dude as the person's spear heading this persecution and that this person was at a camp were kids were involved and oral sex... Patient has HI towards this group of persecutory is though he does not name any of them. He says they are holding his mother and his sister hostage, drugging them; however he also says that team can call his sister for collateral information. He says he called her sometimes to check up on her and see how she is doing. Patient had made some comments about blowing up the city; he thinks people are laughing at him. Social work discussed case with his sister who said that he was diagnosed with schizophrenia when he was incarcerated a few years ago; has a history of substance abuse and can sometimes become aggressive, steal and lie. She does not remember him being paranoid in the past however. Hospital course: On admission, patient highly irritable, guarded and with psychotic symptoms. Mostly kept to himself. Detoxed without incident. Patient was willing to continue Zyprexa and Prozac which were both restarted. Patient remains guarded, with psychotic symptoms, internally preoccupied and difficult with which to engage. Will increase Zyprexa. Initially patient was very difficult with which to engage and he did not want to talk about history of comorbid illness/medication; however his blood pressure and blood sugar were grossly WNL so medications such as metformin and antihypertensives were not restarted. 07/10 Patient remains isolated to his room and bed, quiet keeping to himself them internally preoccupied. On approach Patient lying in bed awake but reticent. Although still very difficult with which to engage, does not have the same angry edge as he did yesterday. Patient reports that he remains with SI, HI and AH. He does however say that the AH is a little bit better than yesterday. Patient agrees to increase Zyprexa. -will leave it Zyprexa 15 mg for now as it has only been 1 day at higher dose; but will consider increasing soon if clinically indicated 07/11 Patient remains isolative, staying in bed by himself much of the day. Still quite an angry presentation however not so much with staff and was willing to talk a little more with conventional underwriter. Still has AH but maybe a little less. Sleeping well enough. Patient said that he still has some SI but he still has a lot of anger towards other people out there. Patient remains unintentionally vague about the specifics. He started saying blame me? Blame me? Am I to blame if the drugs are here? I am an addict.... stop Bringing the drugs into the [place].... Someone got angry and gave an order, a gang, to orchestrate some stuff... Because I took a million dollars? He said that there is someone who got angry at him so they did something or regard to do something... The conventional underwriter did not mention this, it seems likely these comments refer to paranoid delusional idea that his mother and sister are being held captive... Increasing Zyprexa to 20 mg 07/12 Patient up in out of the room, in the milieu. He says he is doing much better. He says all AH have ceased that he is no longer hearing voices; he denies any SI and says he is no longer feeling angry at others, without any HI, saying you have to let your anger go... No paranoid delusions expressed. Patient would like discharge. He wants discharge immediately. He says I am better... I do not hurt myself, I do not hurt anyone else... I have no voices... I am better, let me go. Patient grudgingly accepts that he will need to remain on the unit for another day to continue demonstrating that he remains stable. Plans to go back to [place], another signed that paranoid delusions have resolved. Based on reporting from his sister, this appears to be patient's baseline. He is not interested in any further treatment at all but says he will continue taking medications which he reports has been helpful. Patient does not want help with any appointments or services but just to discharge. Patient of course remains at risk for relapse and mood decompensation and given his itinerant lifestyle and struggles with substance abuse, he will likely at some point again wander into unsafe situations. However, his psychotic and mood symptoms have resolved and he is not in imminent risk for harm to self or others. He is already irritable that he has to remain on the unit another day and as he is not looking to engage with any further treatment, staying on the unit longer will not prove useful. Request for discharge honored. Time spent discussing smoking cessation with patient: 3 to 10 minutes Status at Discharge Functional status at discharge: independent ambulation Overall status at discharge: patient is back to baseline Time Spent with Patient Time attestation: Total time managing care of this patient today ____ minutes. Time spent: Less than 30 minutes Discharge Plan Discharge Anticipated Discharge Date/Time: 07/13/23 11:00 Patient Disposition: Home, Self-Care Discharge Diagnosis: schizophrenia, paranoid type Referrals: Physician,Unknown J [Primary Care Provider] - 1 Week Discharge Medications: New olanzapine 20 mg tablet 20 mg PO BEDTIME 30 Days Qty: 30 0RF olanzapine 20 mg tablet 20 mg PO BEDTIME 30 Days Qty: 30 0RF fluoxetine 10 mg Capsule 10 mg PO DAILY 30 Days Qty: 30 0RF trazodone 50 mg Tablet 50 mg PO BEDTIME PRN (Reason: Insomnia) 30 Days Qty: 30 0RF Discharge Orders: Discharge Order (Routine); Ordered 07/13/23 Ordered By: Go Boyle Diet: Regular diet Activity on Discharge: As tolerated Stand Alone Forms: Patient Portal Discharge page Care Plan Goals: Maintain mood and safe behaviors Take medications as prescribed Continue to pursue sobriety Practice coping skills Continue with outpatient providers and reach out to them as needed Health Concerns: Mood stability and behaviors Sobriety History of hypertension History of hyperglycemia Plan of Treatment: Follow up with your PCP, psychiatric provider and other outpatient providers regarding above concerns Take medications as prescribed Assessment: Risk assessment at time of discharge:? Patient was interviewed prior to discharge and found to be fully oriented and without any SI or HI. Patient has improved insight and judgment and wants to continue treatment. Patient is not in imminent risk of harm to self or others and has a safety plan that includes presenting to the closest ER or calling 911 if feeling unsafe.? Patient has been observed closely by nursing and unit staff throughout admission; patient has not engaged in any behaviors that suggest dangerousness to self or others and has demonstrated appropriate behaviors and impulse control
[2023-07-12 17:14] VITALS: BP 144/77; PULSE 63; RESP 16; TEMP 36.8; O2SAT 95
[2023-07-12 21:40] VITALS: BP 144/79; PULSE 59; TEMP 37
[2023-07-12] MEDS: OLANZapine 10 MG TABLET 20 MG PO (21:41)
[2023-07-12] MEDS: traZODone HCL 50 MG TABLET PO (21:42)
[2023-07-13 06:00] VITALS: RESP 16
[2023-07-13] MEDS: FLUoxetine HCl 10 MG CAPSULE PO (08:25)
[2023-07-13] MEDS: Naloxone HCl Nasal TAKE HOME 4 MG SPRAY 8 MG NOSTRILALT (08:26)
== END 2023-07-13 10:51 | disposition home or self-care (01) | DRG 750 ==
PROVIDERS: Psychiatry & Neurology Psychiatry; Admitting Provider Psychiatry & Neurology Psychiatry; Visit Provider Psychiatry & Neurology Psychiatry
DX: F20.0 Paranoid schizophrenia (principal); R45.851 Suicidal ideations; Z91.148 Patient's other noncompliance with medication regimen for other reason; E78.5 Hyperlipidemia, unspecified; F14.10 Cocaine abuse, uncomplicated; F10.20 Alcohol dependence, uncomplicated; I10 Essential (primary) hypertension; Z87.891 Personal history of nicotine dependence; Z79.899 Other long term (current) drug therapy
CPT/HCPCS: 36415; 80053; 80061; 80076; 82607; 82746; 83036; 84439; 84443; 85025

== ENCOUNTER → 2023-07-07 17:38 | Outpatient (BNV) | payer MEDICAID, SELFPAY | PROVIDERS: Admitting Provider Psychiatry & Neurology Psychiatry; Visit Provider Student in an Organized Health Care Education/Training Program | DX: Z02.2 Encounter for examination for admission to residential institution (principal) | CPT/HCPCS: 99429 ==

== ENCOUNTER → 2023-07-07 17:38 | Outpatient (BNV) | payer MEDICAID, SELFPAY | PROVIDERS: Admitting Provider Psychiatry & Neurology Psychiatry; Visit Provider Psychiatry & Neurology Psychiatry | DX: F20.0 Paranoid schizophrenia (principal); F14.10 Cocaine abuse, uncomplicated; F10.90 Alcohol use, unspecified, uncomplicated; I10 Essential (primary) hypertension; E78.5 Hyperlipidemia, unspecified | CPT/HCPCS: 90792; 99231; 99232; 99238 ==

== ENCOUNTER 2024-08-23 13:34 | Inpatient (IN) | payer MEDICAID, SELFPAY ==
[2024-08-23 13:40] VITALS: BP 158/102; PULSE 74; TEMP 36.3; O2SAT 99
[2024-08-23 13:45] VITALS: BMI 26.8
--- OUTSIDE RECORDS SUMMARY | 2024-08-23 15:51 | XMS_ITS | Clinical Summary ---
Author Organization [facility] Address [address] [place] [address] Phone Care Team Providers Care Milk Truck Driver Name Role Phone Physician, No Pcp Primary Care Provider Unavaila ble Allergies No known active allergies Medications No known medications Encounters Date Type Department Care Team Description 08/21/2024 7:55 PM EST - 08/23/2024 1:15 PM EST Emergency [facility] Emergency [address] [place] [id number] Addy Hatfield, Dragan Polanco MD Millay, Scot A, MD Kenton, Mark A, MD Schizoaffective disorder, depressive type (CMS/HCC) (Primary Dx); Suicidal ideation [facility] Last 3 Months Medical History Medical History Date Comments Schizoaffective disorder, depressive type (CMS/H CC) per EMR HTN (hypertension) per EMR Cocaine abuse ([facility]) per EMR Social History Tobacco Use Types Packs/Day Years Used Date Smoking Tobacco: Every Day Cigarettes Smokeless Tobacco: Never Tobacco Cessation:Ready to Q uit: Not Asked; Counseling Given: Not Answered Alcohol Use Standard Drinks/Week Comments Not Currently 0 (1 standard drink = 0.6 oz pur e alcohol) Sex and Gender Information Value Date Recorded Sex Assigned at Male 08/21/2024 8:27 PM EST Gender Identity Male 08/21/2024 8:27 PM EST Sexual Orientation Straight 08/21/2024 8: 27 PM EST Job Start Date Occupation Industry Not on file Not on file Not on file Obstetrics History Last Filed Vital Signs Vital Sign Reading Time Taken Comments Blood Pressure 156/88 08/23/2024 8:31 AM EST Pulse 76 08/23/2024 8:31 AM EST Temperature 36.4 ??C (97.6 ??F) 08/23/2024 8:31 AM ES T Respiratory Rate 18 08/23/2024 8:31 AM EST Oxygen Saturation 99% 08/23/2024 8:31 AM EST Inhaled Oxygen Concentration - - Weight 90.7 kg (200 lb) 08/21/2024 8:10 PM EST Height 182.9 cm (6') 08/21/2024 8:10 PM EST Body Mass Index 27.12 08/21/2024 8:10 PM EST Plan of Treatment Health Maintenance Due Date Last Done Comments Pneumococcal Vaccine: Pediat rics (0 to 5 Years) and At-Risk Patients (6 to 64 Years) (1 of 2 - PCV) 02/04/1978 DTaP,Tdap,and Td Vaccines (1 - Tdap) 02/04/1991 Hepatitis B Vaccines (1 of 3 - 19+ 3-dose series) 02/04/1991 Zoster Vaccines (1 of 2) 02/04/2022 Cholesterol Screening (Lipid Panel) 08/19/2023 Colorectal Cancer Screening: Colonoscopy 08/19/2023 Depression Screening 08/19/2023 HIV Screening 08/19/2023 Hepatitis C Screening 08/19/2023 Social Influencers of Health Screening 08/19/2023 COVID-19 Vaccine (1 - 2023-2 5 season) 2024 Influenza Vaccine (#1) 2024 HIB Vaccines Aged Out No longer eligi ble based on patient's age to complete this topic HPV Vaccines Aged Out No longer eligi ble based on patient's age to complete this topic Hepatitis A Vaccines Aged Out No long er eligible based on patient's age to complete this topic IPV Vaccines Aged Out No longer eligi ble based on patient's age to complete this topic MMR Vaccines Aged Out No longer eligi ble based on patient's age to complete this topic Meningococcal ACWY Vaccine Aged Out N o longer eligible based on patient's age to complete this topic RSV Immunization Patients Un nichole 20 months Aged Out No longer eligible b ased on patient's age to complete this topic Varicella Vaccines Aged Out No longer eligible based on patient's age to complete this topic Procedures Procedure Name Priority Date/Time Associated Diagnosis Comments ECG 12-LEAD Routine 08/22/2024 6:09 PM EST CBC WITH AUTO DIFFERENTIAL STAT 08/21/2024 8:18 PM EST SALICYLATE LEVEL STAT 08/21/2024 8:18 PM EST ACETAMINOPHEN LEVEL STAT 08/21/2024 8 :18 PM EST ETHANOL STAT 08/21/2024 8:18 PM EST THYROID STIMULATING HORMONE STAT 08/21/2024 8:18 PM EST COMPREHENSIVE METABOLIC PANEL STAT 08/21/2024 8:18 PM EST CBC AND DIFFERENTIAL STAT 08/21/2024 8:18 PM EST METHADONE SCREEN, URINE STAT Add-on 08/21/2024 8:05 PM EST PHENCYCLIDINE, URINE STAT Add-on 08/21/2024 8:05 PM EST BUPRENORPHINE SCREEN, URINE STAT Add-on 08/21/2024 8:05 PM EST DRUG ABUSE SCREEN 8A PANEL, URINE STAT 08/21/2024 8:05 PM EST from Last 3 Months Results * (ABNORMAL) CBC auto differential (08/21/2024 8:18 PM EST) [facility] WBC 7.2 4.8 - 10.8 K/mcL LAB HEMETOLOGY METHOD 08/21/2024 8:37 PM [facility] RBC 4.20(L) 4.50 - 5.50 M/mcL LAB HEMETOLOGY METHOD 08/21/2024 8:37 PM [facility] Hemoglobin 13.1(L) 13.5 - 17.5 g/dL LAB HEMETOLOGY METHOD 08/21/2024 8:37 PM [facility] Hematocrit 39.2(L) 42.0 - 54.0 % LAB HEMETOLOGY METHOD 08/21/2024 8:37 PM [facility] MCV 93.1 79.0 - 98.0 FL LAB HEMETOLOGY METHOD 08/21/2024 8:37 PM [facility] MCH 31.1 27.0 - 32.0 pcg LAB HEMETOLOGY METHOD 08/21/2024 8:37 PM [facility] MCHC 33.4 32.0 - 37.0 g/dL LAB HEMETOLOGY METHOD 08/21/2024 8:37 PM [facility] RDW 13.5 11.0 - 15.0 % LAB HEMETOLOGY METHOD 08/21/2024 8:37 PM [facility] Platelets 251 130 - 400 K/mcL LAB HEMETOLOGY METHOD 08/21/2024 8:37 PM [facility] MPV 9.3 7.0 - 11.0 FL LAB HEMETOLOGY METHOD 08/21/2024 8:37 PM [facility] NRBC 0.0 <1.0 % LAB HEMETOLOGY METHOD 08/21/2024 8:37 PM [facility] NRBC Absolute 0.00 <0.10 K/mcL LAB HEMETOLOGY METHOD 08/21/2024 8:37 PM [facility] Neutrophils Relative 55.3 % LAB HEMETOLOGY METHOD 08/21/2024 8:37 PM [facility] Lymphocytes Relative 30.2 % LAB HEMETOLOGY METHOD 08/21/2024 8:37 PM [facility] Monocytes Relative 11.2 % LAB HEMETOLOGY METHOD 08/21/2024 8:37 PM [facility] Eosinophils Relative 3.1 % LAB HEMETOLOGY METHOD 08/21/2024 8:37 PM [facility] Basophils Relative 0.1 % LAB HEMETOLOGY METHOD 08/21/2024 8:37 PM [facility] Immature Granulocytes Relative 0.1 % LAB HEMETOLOGY METHOD 08/21/2024 8:37 PM EST [facility] Neutrophils Absolute 3.96 1.50 - 7.00 K/mcL LAB HEMETOLOGY METHOD 08/21/2024 8:37 PM EST [facility] Lymphocytes Absolute 2.16 1.00 - 5.00 K/mcL LAB HEMETOLOGY METHOD 08/21/2024 8:37 PM EST [facility] Monocytes Absolute 0.80 0.20 - 1.00 K/[facility] LAB HEMETOLOGY METHOD 08/21/2024 8:37 PM EST [facility] Eosinophils Absolute 0.22 0.00 - 0.50 K/[facility] LAB HEMETOLOGY METHOD 08/21/2024 8:37 PM EST [facility] Basophils Absolute 0.01 0.00 - 0.20 K/mcL LAB HEMETOLOGY METHOD 08/21/2024 8:37 PM EST [facility] Immature Granulocytes Absolute 0.01 0.00 - 0.03 K/[facility] LAB HEMETOLOGY METHOD 08/21/2024 8:37 PM EST [facility] Blood Venous blood specimen / Unknown Venipuncture / Unknown 08/21/2024 8:18 PM EST 08/21/2024 8:31 PM EST Agusto Rouse MD LAB BLOOD ORDERABLES [facility] [address] [place] [address], * Thyroid stimulating hormone (TSH) (08/21/2024 8:18 PM EST) TSH 0.46 0.40 - 4.00 mcIU/mL LAB CHEMISTRY METHOD 08/21/2024 9:13 PM EST [facility] Blood Venous blood specimen / Unknown Venipuncture / Unknown 08/21/2024 8:18 PM EST 08/21/2024 8:31 PM EST Agusto Rouse MD LAB BLOOD ORDERABLES Performing Organization Address City/[facility]/ZIP Co de Phone Number [facility] [address] [place] [address], [place] [phone] * Ethanol level (Alcohol level) (08/21/2024 8:18 PM EST) Ethanol Level <3 0 - 10 mg/dL LAB CHEMISTRY METHOD 08/21/2024 9:05 PM EST [facility] Blood Venous blood specimen / Unknown Venipuncture / Unknown 08/21/2024 8:18 PM EST 08/21/2024 8:31 PM EST Agusto Rouse MD LAB BLOOD ORDERABLES Performing Organization Address [facility]/ZIP Co de Phone Number [facility] [address] [place] [address], * (ABNORMAL) Acetaminophen level (08/21/2024 8:18 PM EST) Acetaminophen Level <2.0(L) 10.0 - 30.0 mcg/mL LAB CHEMISTRY METHOD 08/21/2024 9:10 PM EST [facility] Blood Venous blood specimen / Unknown Venipuncture / Unknown 08/21/2024 8:18 PM EST 08/21/2024 8:31 PM EST Agusto Rouse MD LAB BLOOD ORDERABLES Performing Organization Address City/[facility]/ZIP Co de Phone Number [facility] [address] [place] [address], [place] [phone] * (ABNORMAL) Salicylate level (08/21/2024 8:18 PM EST) Salicylate Level 1.9(L) 2.0 - 29.0 mg/dL LAB CHEMISTRY METHOD 08/21/2024 9:05 PM EST [facility] Blood Venous blood specimen / Unknown Venipuncture / Unknown 08/21/2024 8:18 PM EST 08/21/2024 8:31 PM EST Narrative Authorizing Provider Result Fazal Rouse MD LAB BLOOD ORDERABLES [facility] [address] [place] [address], * (ABNORMAL) Comprehensive metabolic panel (CMP) (08/21/2024 8:18 PM EST) Sodium 140 133 - 145 mmol/L LAB CHEMISTRY METHOD 08/21/2024 9:10 PM [facility] Potassium 3.8 3.5 - 5.5 mmol/L LAB CHEMISTRY METHOD 08/21/2024 9:10 PM [facility] Chloride 110 96 - 110 mmol/L LAB CHEMISTRY METHOD 08/21/2024 9:10 PM [facility] CO2 28 21 - 32 mmol/L LAB CHEMISTRY METHOD 08/21/2024 9:10 PM [facility] Anion Gap 2(L) 3 - 11 LAB CHEMISTRY METHOD 08/21/2024 9:10 PM [facility] Glucose 92 70 - 100 mg/dL LAB CHEMISTRY METHOD 08/21/2024 9:10 PM [facility] BUN 13 5 - 25 mg/dL LAB CHEMISTRY METHOD 08/21/2024 9:10 PM [facility] Creatinine 0.85 0.70 - 1.30 mg/dL LAB CHEMISTRY METHOD 08/21/2024 9:10 PM [facility] eGFR 105 >=60 mL/min/1. 73m2 LAB CHEMISTRY METHOD 08/21/2024 9:10 PM [facility] Comment:Calculation based on the??Chronic Kidney Disease Epidemiology Collaboration (CKD-EPI) equation refit??without adjustment for race. BUN/Creatinine Ratio 15.3 LAB CHEMISTRY METHOD 08/21/2024 9:10 PM [facility] Calcium 8.7 8.5 - 10.5 mg/dL LAB CHEMISTRY METHOD 08/21/2024 9:10 PM [facility] AST (SGOT) 28 10 - 42 unit/L LAB CHEMISTRY METHOD 08/21/2024 9:10 PM [facility] ALT (SGPT) 23 10 - 60 unit/L LAB CHEMISTRY METHOD 08/21/2024 9:10 PM [facility] Alkaline Phosphatase 125(H) 42 - 121 unit/L LAB CHEMISTRY METHOD 08/21/2024 9:10 PM [facility] Total Protein 6.3 6.0 - 8.0 g/dL LAB CHEMISTRY METHOD 08/21/2024 9:10 PM [facility] Albumin 3.3 3.2 - 5.0 g/dL LAB CHEMISTRY METHOD 08/21/2024 9:10 PM [facility] Total Bilirubin 0.2 0.0 - 1.4 mg/dL LAB CHEMISTRY METHOD 08/21/2024 9:10 PM [facility] Blood Venous blood specimen / Unknown Venipuncture / Unknown 08/21/2024 8:18 PM EST 08/21/2024 8:31 PM EST Agusto Rouse MD LAB BLOOD ORDERABLES [facility] [address] [place] [address], * (ABNORMAL) Drug abuse screen 8a panel, urine (08/21/2024 8:05 PM EST) Amphetamine Screen, Ur Negative Negative LAB CHEMISTRY METHOD 9:14 PM EST [facility] Comment:Certain OTC medicati ons containing ephedrine, phenylephrine, pseudoephedrine and phenylpropanolamine can cause false positive results. Barbiturate Screen, Ur Negative Negative LAB CHEMISTRY METHOD 5 9:14 PM [facility] Benzodiazepine Screen, Ur Negative Negative LAB CHEMISTRY METHOD 5 9:14 PM [facility] Cocaine Screen, Ur Positive(A ) Negative LAB CHEMISTRY METHOD 5 9:14 PM [facility] Opiate Screen, Ur Negative Negative LAB CHEMISTRY METHOD 5 9:14 PM [facility] Cannabinoid (THC) Screen, Ur Negative Negative LAB CHEMISTRY METHOD 5 9:14 PM [facility] Comment:Specimens from patie nts taking pantoprazole sodium (Protonix) have been shown to produce false positive results. Oxycodone Screen, Ur Negative Negative LAB CHEMISTRY METHOD 5 9:14 PM [facility] Fentanyl, Ur Negative Negative LAB CHEMISTRY METHOD 5 9:14 PM [facility] Urine Urine specimen obtained by clean catch procedure / Unknown Non-blood Collection / Unknown 08/21/2024 8:05 PM EST 08/21/2024 8:33 PM EST [facility] - 08/21/2024 9:14 PM EST Assay cutoffs: Amphetamines ? 1000 ng/mL Barbiturates ?200 ng/mL Benzodiazepines ?? 200 ng/mL Cocaine ? 300 ng/mL Fentanyl ?1 ng/mL Opiates ? 300 ng/mL Oxycodone ? 100 ng/mL THC ?50 ng/mL Semi-quantitative assay for screening purposes only. Unconfirmed screening result should not be used for non-medical purposes. *ALTERNATE METHOD CONFIRMATION DONE UPON REQUEST ONLY* Agusto Rouse MD LAB URINE ORDERABLES [facility] [address] [place] [address], * Buprenorphine screen, urine (08/21/2024 8:05 PM EST) Buprenorphine Screen Urine Negative Negative LAB CHEMISTRY METHOD 08/21/2024 9:22 PM EST [facility] Urine Urine specimen obtained by clean catch procedure / Unknown Non-blood Collection / Unknown 08/21/2024 8:05 PM EST 08/21/2024 8:33 PM EST Narrative [facility] - 08/21/2024 9:22 PM EST Assay cutoff 5 ng/mL Semi-quantitative assay for screening purposes only. Unconfirmed screening result should not be used for non-medical purposes. *ALTERNATE METHOD CONFIRMATION DONE UPON REQUEST ONLY* Rai WALKER LAB URINE ORDERABLES Performing Organization Address [facility] Co de Phone Number [facility] [address] [place] [address], [place] [phone] * Methadone, urine (08/21/2024 8:05 PM EST) [facility] Methadone Screen, Urine Negative Negative LAB CHEMISTRY METHOD 08/21/2024 9:22 PM EST [facility] Comment: Assay cutoff 300 ng/mL Semi-quantitative assay for screening purposes only. Unconfirmed screening result should not be used for non-medical purposes. *ALTERNATE METHOD CONFIRMATION DONE UPON REQUEST ONLY* Urine Urine specimen obtained by clean catch procedure / Unknown Non-blood Collection / Unknown 08/21/2024 8:05 PM EST 08/21/2024 8:33 PM EST Rai WALKER LAB URINE ORDERABLES Performing Organization Address City/[facility]/ZIP Co de Phone Number [facility] [address] [place] [address], [place] [phone] * Phencyclidine, urine (08/21/2024 8:05 PM EST) PCP Scrn, Ur Negative Negative LAB CHEMISTRY METHOD 08/21/2024 9:22 PM EST [facility] Comment: Assay cutoff 25 ng/mL Semi-quantitative assay for screening purposes only. Unconfirmed screening result should not be used for non-medical purposes. *ALTERNATE METHOD CONFIRMATION DONE UPON REQUEST ONLY* Urine Urine specimen obtained by clean catch procedure / Unknown Non-blood Collection / Unknown 08/21/2024 8:05 PM EST 08/21/2024 8:33 PM EST Rai WALKER LAB URINE ORDERABLES [facility] [address] [place] [address], from Last 3 Months Care Teams Milk Truck Driver Relationship Specialty Start Date End Date Physician, No Pcp PCP - General 08/21/24
--- OUTSIDE RECORDS SUMMARY | 2024-08-23 15:51 | XMS_ITS | Encounter Summary ---
Author Organization [facility] Address [address] [place] [address] Care Team Providers Care Reconnaissance Man Name Role Phone Physician, No Pcp Primary Care Provider Unavaila ble Reason for Visit * Reason Comments Suicidal Homicidal Hallucinations Encounter Details Date Type Department Care Team (Late st Contact Info) Description 08/21/2024 7:55 PM EST - 08/23/2024 1:15 PM EST Emergency [facility] Emergency [address] [place] [address] Addy Hatfield, DO [address] [place] [address] Dragan Vu MD [address] [place] [id number] Jerome Soler MD [address] [place] [address] Binh Munoz MD [address] [place] [address] Schizoaffective disorder, depressive type (CMS/HCC) (Primary Dx); Suicidal ideation Discharge Disposition: Psychiatric Hospital Social History Tobacco Use Types Packs/Day Years [...] file Not on file Not on file documented as of this encounter Last Filed Vital Signs Vital Sign Reading [...] Mass Index 27.12 08/21/2024 8:10 PM EST documented in this encounter Discharge Disposition Disposition Code Departure Means Destination Comment [facility] documented in this encounter Progress Notes * Tabitha Agarwal RN - 08/23/2024 11:14 AM EST Nurse to nurse verbal report has been given to VIMAL Wick @ [facility], . ETA is yet to be determined. * Steph Araya - 08/23/2024 10:36 AM EST Patient accepted to [facility] [place], , by Dr Go Matute for today 08/23/24. ETA will be determined during nurse to nurse. * Leighann Michael NP - 08/22/2024 5:26 PM EST Psychiatry Initial Intake Seth Emmanuel, is a 54-year-old male with history of schizophrenia presenting to the ED for evaluation of suicidal and homicidal ideations with auditory hallucinations commanding him to harm himselfand others. The patient denies any actual attempt at self-harm, denies any acute somatic complaint. HPI Mr Emmanuel reports increasing voices approximately a day ago with homicidal ideation and to kill myself . Reports getting louder : but unable to make out what they are saying I just know that is what they want Objective Lying on bed in Pod, blankets pulled up to cover most of face, limited eye contact. Irritable but mostly cooperative with assessment. Able to make needs known to staff. Duration: 50 minutes Current Medications: Scheduled Meds: Continuous Infusions: PRN Meds: Past Psychiatric History: Previous therapy: yes Previous psychiatric treatment and medication trials: yes - per EHR prior treatment with olanzapineand fluoxetine for schizophrenia schizoaffective disorder Previous psychiatric hospitalizations: yes - unsure of when but within last couple of months Previous diagnoses: yes - schizophrenia schizoaffective disorder Previous suicide attempts: yes - history of SI unknown regarding self harming behaviors - prior visit to ED with self-inflicted injury to palm History of violence: unknown Currently in treatment with denies. Education: GED Other pertinent history: Financial and homeless Substance Abuse History: Recreational drugs: cocaine Use of alcohol: denied Legal consequences of chemical use: unknown Patient feels he ought to cut down on drinking and/or drug use: unknown Psychiatric Review Of Systems: Sleep: :TrYing Appetite changes: force myself, I don't want to eat Weight changes: no Energy: no Anxiety/panic: yes Guilty/hopeless: yes Self-injurious behavior/risky behavior: yes Any drugs: yes Alcohol: yes Mental Status Exam: General Observations Appearance and Build: age appropriate and unkempt Demeanor: Mistrustful and Reoccupied Eye Contact: Avoidant Activity: Restless, fidget Speech: loud Behavior: restless and fidgety, resistant, and impulsive Mood: anxious and depressed Affect: increased in intensity and mood-congruent Thought Process: goal directed Thought Content: Delusions: none reported Other: none reported Self Abuse: suicidal (assess lethality if present): reports command hallucinations leading to arrival in ED Aggressive: none reported Cognition: Impairment of: attention/concentration Intelligence Estimate: average Sensorium/Orientation: person, place, and situation Perception: Hallucinations: auditory and visual Other: none reported Insight/Judgment: fair Elaboration of Positive Mental Status Findings: Mr Emmanuel presented to [facility] with reports of command AH to hurt himself and others. Voices Increasing over last day. Reports last taking psychotropic medications don't know Functioning in Relationships: Spouse/partner: denies Peers: denies Employers: denies Other Pertinent Information Reports currently unhoused, denies supports in the community. Denies current psychiatric providers Objective: Seclusion/Restraint in last 24 hours: No Blood pressure (!) 142/91, pulse 61, temperature 36.6 ??C (97.8 ??F), resp. rate 20, height 1.829 m(72 ), weight 90.7 kg (200 lb), SpO2 100%. Lab Results: Results for orders placed or performed during the hospital encounter of 08/21/24 Drug abuse screen 8a panel, urine Collection Time: 08/21/24 8:05 PM Result Value Ref Range Amphetamine Screen, Ur Negative Negative Barbiturate Screen, Ur Negative Negative Benzodiazepine Screen, Ur Negative Negative Cocaine Screen, Ur Positive (A) Negative Opiate Screen, Ur Negative Negative Cannabinoid (THC) Screen, Ur Negative Negative Oxycodone Screen, Ur Negative Negative Fentanyl, Ur Negative Negative Buprenorphine screen, urine Collection Time: 08/21/24 8:05 PM Result Value Ref Range Buprenorphine Screen Urine Negative Negative Phencyclidine, urine Collection Time: 08/21/24 8:05 PM Result Value Ref Range PCP Scrn, Ur Negative Negative Methadone, urine Collection Time: 08/21/24 8:05 PM Result Value Ref Range Methadone Screen, Urine Negative Negative Comprehensive metabolic panel (CMP) Collection Time: 08/21/24 8:18 PM Result Value Ref Range Sodium 140 133 - 145 mmol/L Potassium 3.8 3.5 - 5.5 mmol/L Chloride 110 96 - 110 mmol/L CO2 28 21 - 32 mmol/L Anion Gap 2 (L) 3 - 11 Glucose 92 70 - 100 mg/dL BUN 13 5 - 25 mg/dL Creatinine 0.85 0.70 - 1.30 mg/dL eGFR 105 >=60 mL/min/1.73m2 BUN/Creatinine Ratio 15.3 Calcium 8.7 8.5 - 10.5 mg/dL AST (SGOT) 28 10 - 42 unit/L ALT (SGPT) 23 10 - 60 unit/L Alkaline Phosphatase 125 (H) 42 - 121 unit/L Total Protein 6.3 6.0 - 8.0 g/dL Albumin 3.3 3.2 - 5.0 g/dL Total Bilirubin 0.2 0.0 - 1.4 mg/dL Thyroid stimulating hormone (TSH) Collection Time: 08/21/24 8:18 PM Result Value Ref Range TSH 0.46 0.40 - 4.00 mcIU/mL Ethanol level (Alcohol level) Collection Time: 08/21/24 8:18 PM Result Value Ref Range Ethanol Level <3 0 - 10 mg/dL Acetaminophen level Collection Time: 08/21/24 8:18 PM Result Value Ref Range Acetaminophen Level <2.0 (L) 10.0 - 30.0 mcg/mL Salicylate level Collection Time: 08/21/24 8:18 PM Result Value Ref Range Salicylate Level 1.9 (L) 2.0 - 29.0 mg/dL CBC auto differential Collection Time: 08/21/24 8:18 PM Result Value Ref Range WBC 7.2 4.8 - 10.8 K/mcL RBC 4.20 (L) 4.50 - 5.50 M/mcL Hemoglobin 13.1 (L) 13.5 - 17.5 g/dL Hematocrit 39.2 (L) 42.0 - 54.0 % MCV 93.1 79.0 - 98.0 FL MCH 31.1 27.0 - 32.0 pcg MCHC 33.4 32.0 - 37.0 g/dL RDW 13.5 11.0 - 15.0 % Platelets 251 130 - 400 K/mcL MPV 9.3 7.0 - 11.0 FL NRBC 0.0 <1.0 % NRBC Absolute 0.00 <0.10 K/mcL Neutrophils Relative 55.3 % Lymphocytes Relative 30.2 % Monocytes Relative 11.2 % Eosinophils Relative 3.1 % Basophils Relative 0.1 % Immature Granulocytes Relative 0.1 % Neutrophils Absolute 3.96 1.50 - 7.00 K/mcL Lymphocytes Absolute 2.16 1.00 - 5.00 K/mcL Monocytes Absolute 0.80 0.20 - 1.00 K/mcL Eosinophils Absolute 0.22 0.00 - 0.50 K/mcL Basophils Absolute 0.01 0.00 - 0.20 K/mcL Immature Granulocytes Absolute 0.01 0.00 - 0.03 K/mcL Diagnosis Schizophrenia disorder Recommendations 1) Olanzapine 10 mg at bedtime to assist auditory hallucinations. May promote sleep and stabilize mood. Patient in agreement to resume medication at this time Monitor Qtc (Will add order for EKG) If noted >500 stop antipsychotic medications Maintain K+>4 and Mg>2 2) Will add lorazepam 0.5 mg PO Q 8 hours PRN anxiety (IN ED ONLY) 3) Agree with plan for inpatient psychiatric hospitalization for patient safety and medication management. * Addy Hatfield DO - 08/22/2024 9:08 AM EST ED Course as of 08/22/24 1450 Mon Aug 21, 2024 2214 The patient is been seen by the crisis evaluation team, at this time patient continues to endorse suicidal ideation and command auditory hallucinations, and the patient will be kept for an inpatient bed search. [RM] Tue Aug 22, 2024 0908 Received patient end of shift transfer care. History of schizophrenia, here in the ED for evaluation of suicidal and homicidal ideation and hallucinations. He is medically clear. Crisis evaluated the patient and he is being held for inpatient psychiatric admission bed search. No acute issues overnight. No complaints from the patient at this time. Nursing staff has no acute issues [MC] ED Course User Index [MC] Addy Hatfield DO [RM] AARON Shepard Clinical Impressions as of 08/22/24 1450 Schizoaffective disorder, depressive type (CMS/HCC) Data Unavailable 1. Schizoaffective disorder, depressive type (CMS/HCC) Procedures * Renee Cee RN - 08/21/2024 8:44 PM EST 54 yo M [place] with a chief complaint of +SI and +HI, without a plan per EMS and patient, also endorsing +AH, hx of schizophrenia, upon this jingle writer's assessment patient is stating that he has suicidal and homicidal thoughts, denies a plan, denies recent attempts, othe rwise appears stable including VS, calm and cooperative, no other complaints, denies taking medication, food and fluids given to patient, patient tolerated well, resting comfortably on stretcher, belongings secured with security, patient changed into appropriate clothing, WTBS, wctm documented in this encounter Consult Notes * Alessia Robison - 08/23/2024 8:42 AM EST Images from the original note were not included. Behavioral Health Services - Mental Status Update Important times Time assessment started: 8:30 a.m. Time of disposition: 9:00 a.m. Location: [facility] Consulted case with: Evangelina Dixon LCSW Reason for Consultation / Presenting Problem: Seth Emmanuel is being seen today for a 24 hour re-evaluation due to their state wide bed search being exhausted. Seth was initially referred to Behavioral Health due to complaint of SI and HI without a specific plan, and command AH telling him to end his life, and kill other people . During the follow up Seth was minimally engaged. He reports he is feeling not good today due tothe continued AH. He states he is also experiencing VH of blurry figures . He reports taking the medications prescribed by the psychiatrist yesterday, and that they helped him sleep last night. Collaterals, contact information, and engagement level: Therapist: None Psychiatrist: None PCP: None Family: None reported Mental Status Speech: WNL Eye Contact: Intermittent Motor Activity: WNL Mood: Irritable Affect: Flat Sleep: Seth reports he slept well last night. He states the medications that were prescribed by the psychiatrist helped him sleep. Appetite: WNL Memory: WNL Attention / Concentration: WNL Behavior: Guarded and Avoidant Hallucinations: Auditory and Visual. Seth reports continuing to hear voices telling him the same as yesterday (08/23/24). Per previous assessment the voices were telling him to end his life, and kill other people . Seth also reports VH of seeing blurry figures . Delusions: None reported Thought Content: WNL SI: Current. Seth reports hearing voices telling him to end his life . HI: Current. Seth reports hearing voices telling him to kill other people . Thought Process: WNL Orientation Impairment: None Insight: WNL Judgment: Poor Impulse Control: WNL Medications: Scheduled Meds: OLANZapine, 10 mg, oral, Nightly PRN Meds: PRN medications: LORazepam Risk Assessment: Self-Harm: None Suicidal Behavior: Current ideation. Seth reports hearing voices telling him to end his life . Homicidal Behavior: Current ideation. Seth reports hearing voices telling him to kill other people . Physical Assault: None Physical Aggression: None Property Damage: None Verbal Aggression: None Family history of suicide: None reported Protective Factors: Help seeking. Advocates for self. Risk Factors: SI and HI History of AH and VH Homelessness Suicide Risk: Based on patient's history and current presentation, their level of risk for intentional lethal harm is considered Moderate. Interventions: Risk assessment. Active, empathetic, and supportive listening. Motivational interviewing. Response to interventions: Patient was minimally engaged during follow up. DSM-5TR Diagnosis: F25.1 Schizoaffective disorder, Depresive type F14.20 Stimulant Use Disorder, Cocaine, Moderate by history Plan: Patient meets criteria for inpatient hospitalization for safety and containment, mood stabilization, medication evaluation, individual and group therapies, and connection to community providers. Patient is currently voluntary for admission, however, should he change his mind, he needs to be re-evaluated by the Behavioral Health team to determine if that is appropriate based on his current level of risk and presentation. Recommendations were discussed with requesting provider. It was a pleasure to assist Seth Emmanuel here at [facility]. This report is written and finalized by: JALEN Rod Crane Manager Under the Supervision of JALEN Chance, MARIBELW Behavioral Health Specialist [facility] (Tel): [phone] / : [phone] * Lyssa Rios - 08/22/2024 10:48 AM EST Images from the original note were not included. Behavioral Health Services - Mental Status Update Important times Time assessment started: 10:00 Time of disposition: 12:00pm Location: ED, Room-G Consulted case with: Evangelina Dixon LCSW Reason for Consultation / Presenting Problem: Seth Emmanuel is being seen today for a 24 hour re-evaluation due to their state wide bed search being exhausted. Patient is a 54-year-old, white man who present to the ED via ambulance from the train station with a chief complaint of suicidal and homicidal ideation without a specific plant. Patient continues to experience auditory hallucinations with commands telling him to end his life, and kill other people . The patient has a history of schizoaffective disorder and homelessness. During this 24-hour re-evaluation, patient continues to present with the same SI and HI ideations and auditory hallucinations. Patient was not willing to engage and resistant towards signing voluntary paperwork for transferring to [place] in- patient psychiatric facilities. Patient will think over the decision to sign, and will discuss the decision later today (08/22/2024) with counselor. Patient was resistant towards MSU and treatment planning with counselor. Collaterals, contact information, and engagement level: Therapist: NO Psychiatrist: No PCP: No Family: Not reported Other: Not reported Mental Status Speech: WNL Eye Contact: WNL Motor Activity: WNL Mood: Anxious, Depressed, and Irritable Affect: Flat Sleep: Poor Appetite: Fair Memory: WNL Attention / Concentration: WNL Behavior: Cooperative and Guarded Hallucinations: Auditory telling him to end his life and kill other people. Delusions: None Thought Content: WNL SI: Presence HI: Presense Thought Process: WNL Orientation Impairment: None Insight: WNL Judgment: WNL and Poor Impulse Control: WNL Medications: Scheduled Meds: MEDSSCHEDULED None was reported. Continuous Infusions: MEDSCONTINUOUS N/A PRN Meds: MEDSPRN N/A Risk Assessment: Self-Harm: None Suicidal Behavior: Current and Ideation Homicidal Behavior: Current and Ideation Physical Assault: None Physical Aggression: None Property Damage: None Verbal Aggression: None Family history of suicide: Not reported Protective Factors: Help seeking, able to advocate for himself, calm and cooperative. Risk Factors: Suicidal and Homicidal Ideations. History of auditory hallucination, non-medication compliant, history of homelessness, not forward coming. Suicide Risk: Based on patient's history and current presentation, their level of risk for intentional lethal harm is considered Moderate Interventions: Re-evaluation, patient engagement. Response to interventions: Limited engagement, resistance. DSM-5TR Diagnosis: F25.1 Schizoaffective disorder, Depresive type F14.20 Stimulant Use Disorder, Cocaine, Moderate by history Plan: Based on the above information, it is my clinical opinion that Seth would benefit from an inpatient psychiatric admission for safety and containment, mood stabilization, medication evaluation, diagnostic clarification, and participation in a therapeutic milieu. Upon discharge, he would benefit from a referral to outpatient providers for continued medication management, and to gain insight and psychoeducation into his mental health symptoms and develop adaptive coping skills for his depression and suicidal ideation. In addition, he will also benefit from areferral to half-way/housing in the community. Recommendations were discussed with requesting provider. It was a pleasure to assist Seth Emmanuel here at [facility]. This report is written and finalized by: Lyssa Rios Behavioral Health Specialist [facility] (Tel): [phone] / : [phone] * Ricardo Valenzuela - 08/21/2024 10:10 PM ESTAssociated Order(s): IP CONSULT TO POWER STATION OPERATOR Images from the original note were not included. Behavioral Health Services - Crisis Assessment Important times Time of arrival: 7:51PM--08/21/2024 Time of referral: 9:12 PM--08/21/2024 Time of readiness: 9:15 PM--08/21/2024 Time assessment started: 9:30 PM--08/21/2024 Time of disposition: 10:10PM -08/21/2024 Location: ED, Room- Consulted case with: Evangelina Dixon LCSW Reason for Consultation / Presenting Problem: Seth Emmanuel is being seen today for a consultive service at the request of AARON Shepard to assess risk and identify appropriate level of care. Seth is-a-54 years old, White male presents to the ED in which was picked up by ambulance from train station with a chief complaint of suicidal and homicidal ideation without a specific plan and reported auditory hallucination with commands telling him ???to end his life, and kill other people. The patient has a history of schizoaffective disorder and homeless. History of Present Illness: Seth is a 54 y.o. male with Chief Complaint Patient presents with Suicidal Homicidal Hallucinations Social/Educational History: Guardian - if Yes, provide contact information: No [place] Status: No State Agency Involvement: None. Emery's Order: No Marital Status: Single Alternative Placement Details: N/A Living Situation for patient: Homeless Household Members/Age: Unknown Friendships/Family/Social Peer Support/Relationships: the patient able to advocate for himself. Highest level of education: GED Comments (Include Learning Needs): N/A Occupation: Unemployed Employment/Extracurricular Activities/Hobbies: N/A Limitations of Daily Activities: N/A Strengths/Supports: N/A Collaterals, contact information, and engagement level: Therapist: No Psychiatrist: No PCP: Not reported. Family: None reported Other: N/A Mental Status Speech: WNL Eye Contact: WNL Motor Activity: WNL Mood: Anxious and Depressed and suicidal Affect: Flat Sleep: WNL Appetite: Fair Memory: WNL Attention / Concentration: WNL Behavior: Cooperative Appearance: The patient wearing the hospital attire. Hallucinations: Auditory, telling him to end his life and kill other people. Delusions: None Thought Content: WNL SI: Presence HI: Presense Thought Process: WNL Orientation Impairment: None Insight: WNL Judgment: Poor Impulse Control: WNL Substance Use History (Including family history): Denies uses and family history. Utox Results: The patient U Tox screen is positive on cocaine. Substance Use Treatment History: The patient denies any substance use history. Mental Health Treatment History: Outpatient Mental Health Treatment: None reported. Previous or Current Psychological Diagnosis: schizoaffective, depression and anxiety. Prior Psychiatric Hospitalizations/Residential Treatment Facilities: The patient denied however, Patient was unable to recall any past hospitalizations. He was remined that his last visit was 09/30/23 and he stated he was discharged to [facility] [place]. Per previous documentation: History is significant for in-patient admissions in [place] and recently at [facility] [place] 06/2023. Other Comments Regarding Mental Health Treatment History: The patient is very guarded in reported his previous history. Mental Health Concerns in Family: None reported. Trauma History: None was reported. Medications: Scheduled Meds: None was reported. Continuous Infusions: N/A PRN Meds: N/A Risk Assessment: Self-Harm: None Suicidal Behavior: Current Homicidal Behavior: Current Physical Assault: None Physical Aggression: None Property Damage: None Verbal Aggression: None Family history of suicide: None was reported. Protective Factors: Help seeking, able to advocate for himself, calm and cooperative. Risk Factors: History of auditory hallucination, non-medication compliant, history of homelessness,not forward coming. Suicide Risk: Based on patient's history and current presentation, their level of risk for intentional lethal harm is considered Moderate Interventions: Conducted Safety assessment, Motivational interviewing, active listening, empathetic listening, brief counseling, psychoeducation, support, and safety planning. Response to interventions: The patient responded with the best of his ability. DSM-5TR Diagnosis: F25.1 Schizoaffective disorder, Depresive type F14.20 Stimulant Use Disorder, Cocaine, Moderate by history Plan: 54 years-old, male who presented with SI/HI with no specific plan secondary to auditory hallucination accompanied by commands telling him to end his life, and kill other people. The patienthas a history of schizoaffective disorder and history of homelessness. Based on the above information, it is my clinical opinion that Seth would benefit from an inpatient psychiatric admission for safety and containment, mood stabilization, medication evaluation, diagnostic clarification, and participation in a therapeutic milieu. Upon discharge, he would benefit from a referral to outpatient providers for continued medication management, and to gain insight and psychoeducation into his mental health symptoms and develop adaptive coping skills for his depression and suicidal ideation. In addition, he will also benefit from areferral to half-way/housing in the community. Recommendations were discussed with requesting provider AARON Shepard. It was a pleasure to assist Seth Emmanuel here at [facility]. This report is written and finalized by: EMERSON Montgomery Behavioral Health Specialist [facility] (Tel): [phone] / : [phone] documented in this encounter Plan of Treatment Pending Results Name Type Priority Associated Diagnoses Date /Time ECG 12 lead ECG Routine 08/22/2024 6: 09 PM EST documented as of this encounter Procedures Procedure Name Priority Date/Time Associated Diagnosis Comments ECG 12-LEAD Routine 08/22/2024 6:09 PM EST CBC WITH AUTO DIFFERENTIAL STAT 08/21/2024 8:18 PM EST CBC AND DIFFERENTIAL STAT 08/21/2024 8:18 PM EST THYROID STIMULATING HORMONE STAT 08/21/2024 8:18 PM EST ETHANOL STAT 08/21/2024 8:18 PM EST ACETAMINOPHEN LEVEL STAT 08/21/2024 8 :18 PM EST SALICYLATE LEVEL STAT 08/21/2024 8:18 PM EST COMPREHENSIVE METABOLIC PANEL STAT 08/21/2024 8:18 PM EST DRUG ABUSE SCREEN 8A PANEL, URINE STAT 08/21/2024 8:05 PM EST BUPRENORPHINE SCREEN, URINE STAT Add-on 08/21/2024 8:05 PM EST METHADONE SCREEN, URINE STAT Add-on 08/21/2024 8:05 PM EST PHENCYCLIDINE, URINE STAT Add-on 08/21/2024 8:05 PM EST documented in this encounter Results * (ABNORMAL) CBC auto differential (08/21/2024 8:18 PM EST) [facility] WBC 7.2 4.8 - 10.8 K/mcL LAB HEMETOLOGY METHOD 08/21/2024 8:[address] [facility] RBC 4.20(L) 4.50 - 5.50 M/mcL LAB HEMETOLOGY METHOD 08/21/2024 8:[address] [facility] Hemoglobin 13.1(L) 13.5 - 17.5 g/dL LAB HEMETOLOGY METHOD 08/21/2024 8:[address] [facility] Hematocrit 39.2(L) 42.0 - 54.0 % LAB HEMETOLOGY METHOD 08/21/2024 8:[address] [facility] MCV 93.1 79.0 - 98.0 FL LAB HEMETOLOGY METHOD 08/21/2024 8:[address] [facility] MCH 31.1 27.0 - 32.0 pcg LAB HEMETOLOGY METHOD 08/21/2024 8:[address] [facility] MCHC 33.4 32.0 - 37.0 g/dL LAB HEMETOLOGY METHOD 08/21/2024 8:[address] [facility] RDW 13.5 11.0 - 15.0 % LAB HEMETOLOGY METHOD 08/21/2024 8:[address] [facility] Platelets 251 130 - 400 K/mcL LAB HEMETOLOGY METHOD 08/21/2024 8:[address] [facility] MPV 9.3 7.0 - 11.0 FL LAB HEMETOLOGY METHOD 08/21/2024 8:[address] [facility] NRBC 0.0 <1.0 % LAB HEMETOLOGY METHOD 08/21/2024 8:[address] [facility] NRBC Absolute 0.00 <0.10 K/mcL LAB HEMETOLOGY METHOD 08/21/2024 8:[address] [facility] Neutrophils Relative 55.3 % LAB HEMETOLOGY METHOD 08/21/2024 8:[address] [facility] Lymphocytes Relative 30.2 % LAB HEMETOLOGY METHOD 08/21/2024 8:[address] [facility] Monocytes Relative 11.2 % LAB HEMETOLOGY METHOD 08/21/2024 8:[address] [facility] Eosinophils Relative 3.1 % LAB HEMETOLOGY METHOD 08/21/2024 8:[address] [facility] Basophils Relative 0.1 % LAB HEMETOLOGY METHOD 08/21/2024 8:[address] [facility] Immature Granulocytes Relative 0.1 % LAB HEMETOLOGY METHOD 08/21/2024 8:37 PM EST [facility] Neutrophils Absolute 3.96 1.50 - 7.00 K/[facility] LAB HEMETOLOGY METHOD 08/21/2024 8:37 PM EST [facility] Lymphocytes Absolute 2.16 1.00 - 5.00 K/mcL LAB HEMETOLOGY METHOD 08/21/2024 8:37 PM EST [facility] Monocytes Absolute 0.80 0.20 - 1.00 K/[facility] LAB HEMETOLOGY METHOD 08/21/2024 8:37 PM EST [facility] Eosinophils Absolute 0.22 0.00 - 0.50 K/[facility] LAB HEMETOLOGY METHOD 08/21/2024 8:37 PM EST [facility] Basophils Absolute 0.01 0.00 - 0.20 K/mcL LAB HEMETOLOGY METHOD 08/21/2024 8:37 PM EST [facility] Immature Granulocytes Absolute 0.01 0.00 - 0.03 K/[facility] LAB HEMETOLOGY METHOD 08/21/2024 8:37 PM EST [facility] Blood Venous blood specimen / Unknown Venipuncture / Unknown 08/21/2024 8:18 PM EST 08/21/2024 8:31 PM EST Agusto Rouse MD LAB BLOOD ORDERABLES [facility] [address] [place] [address], * (ABNORMAL) Salicylate level (08/21/2024 8:18 PM EST) Salicylate Level 1.9(L) 2.0 - 29.0 mg/dL LAB CHEMISTRY METHOD 08/21/2024 9:05 PM EST [facility] Blood Venous blood specimen / Unknown Venipuncture / Unknown 08/21/2024 8:18 PM EST 08/21/2024 8:31 PM EST Agusto Rouse MD LAB BLOOD ORDERABLES Performing Organization Address [facility] Co de Phone Number [facility] [address] [place] [address], * (ABNORMAL) Acetaminophen level (08/21/2024 8:18 PM EST) Acetaminophen Level <2.0(L) 10.0 - 30.0 mcg/mL LAB CHEMISTRY METHOD 08/21/2024 9:10 PM EST [facility] Blood Venous blood specimen / Unknown Venipuncture / Unknown 08/21/2024 8:18 PM EST 08/21/2024 8:31 PM EST Agusto Rouse MD LAB BLOOD ORDERABLES Performing Organization Address [facility] Co de Phone Number [facility] [address] [place] [address], * Ethanol level (Alcohol level) (08/21/2024 8:18 PM EST) Ethanol Level <3 0 - 10 mg/dL LAB CHEMISTRY METHOD 08/21/2024 9:05 PM EST [facility] Blood Venous blood specimen / Unknown Venipuncture / Unknown 08/21/2024 8:18 PM EST 08/21/2024 8:31 PM EST Agusto Rouse MD LAB BLOOD ORDERABLES Performing Organization Address [facility] Co de Phone Number [facility] [address] [place] [address], * Thyroid stimulating hormone (TSH) (08/21/2024 8:18 PM EST) TSH 0.46 0.40 - 4.00 mcIU/mL LAB CHEMISTRY METHOD 08/21/2024 9:13 PM EST [facility] Blood Venous blood specimen / Unknown Venipuncture / Unknown 08/21/2024 8:18 PM EST 08/21/2024 8:31 PM EST Narrative Authorizing Provider Result Fazal Rouse MD LAB BLOOD ORDERABLES [facility] [address] [place] [address], * (ABNORMAL) Comprehensive metabolic panel (CMP) (08/21/2024 8:18 PM EST) Sodium 140 133 - 145 mmol/L LAB CHEMISTRY METHOD 08/21/2024 9:[address] [facility] Potassium 3.8 3.5 - 5.5 mmol/L LAB CHEMISTRY METHOD 08/21/2024 9:[address] [facility] Chloride 110 96 - 110 mmol/L LAB CHEMISTRY METHOD 08/21/2024 9:[address] [facility] CO2 28 21 - 32 mmol/L LAB CHEMISTRY METHOD 08/21/2024 9:[address] [facility] Anion Gap 2(L) 3 - 11 LAB CHEMISTRY METHOD 08/21/2024 9:[address] [facility] Glucose 92 70 - 100 mg/dL LAB CHEMISTRY METHOD 08/21/2024 9:[address] [facility] BUN 13 5 - 25 mg/dL LAB CHEMISTRY METHOD 08/21/2024 9:[address] [facility] Creatinine 0.85 0.70 - 1.30 mg/dL LAB CHEMISTRY METHOD 08/21/2024 9:[address] [facility] eGFR 105 >=60 mL/min/1. 73m2 LAB CHEMISTRY METHOD 08/21/2024 9:[address] [facility] Comment:Calculation based on the??Chronic Kidney Disease Epidemiology Collaboration (CKD-EPI) equation refit??without adjustment for race. BUN/Creatinine Ratio 15.3 LAB CHEMISTRY METHOD 08/21/2024 9:[address] [facility] Calcium 8.7 8.5 - 10.5 mg/dL LAB CHEMISTRY METHOD 08/21/2024 9:[address] [facility] AST (SGOT) 28 10 - 42 unit/L LAB CHEMISTRY METHOD 08/21/2024 9:[address] [facility] ALT (SGPT) 23 10 - 60 unit/L LAB CHEMISTRY METHOD 08/21/2024 9:[address] [facility] Alkaline Phosphatase 125(H) 42 - 121 unit/L LAB CHEMISTRY METHOD 08/21/2024 9:[address] [facility] Total Protein 6.3 6.0 - 8.0 g/dL LAB CHEMISTRY METHOD 08/21/2024 9:[address] [facility] Albumin 3.3 3.2 - 5.0 g/dL LAB CHEMISTRY METHOD 08/21/2024 9:[address] [facility] Total Bilirubin 0.2 0.0 - 1.4 mg/dL LAB CHEMISTRY METHOD 08/21/2024 9:[address] [facility] Blood Venous blood specimen / Unknown Venipuncture / Unknown 08/21/2024 8:18 PM EST 08/21/2024 8:31 PM EST Agusto Rouse MD LAB BLOOD ORDERABLES [facility] [address] [place] [address], * Methadone, urine (08/21/2024 8:05 PM EST) Methadone Screen, Urine Negative Negative LAB CHEMISTRY METHOD 08/21/2024 9:22 PM EST [facility] Comment: Assay cutoff 300 ng/mL Semi-quantitative assay for screening purposes only. Unconfirmed screening result should not be used for non-medical purposes. *ALTERNATE METHOD CONFIRMATION DONE UPON REQUEST ONLY* Urine Urine specimen obtained by clean catch procedure / Unknown Non-blood Collection / Unknown 08/21/2024 8:05 PM EST 08/21/2024 8:33 PM EST Rai WALKER LAB URINE ORDERABLES Performing Organization Address [facility]/ZIP Co de Phone Number [facility] [address] [place] [address], * Phencyclidine, urine (08/21/2024 8:05 PM EST) PCP Scrn, Ur Negative Negative LAB CHEMISTRY METHOD 08/21/2024 9:22 PM EST [facility] Comment: Assay cutoff 25 ng/mL Semi-quantitative assay for screening purposes only. Unconfirmed screening result should not be used for non-medical purposes. *ALTERNATE METHOD CONFIRMATION DONE UPON REQUEST ONLY* Urine Urine specimen obtained by clean catch procedure / Unknown Non-blood Collection / Unknown 08/21/2024 8:05 PM EST 08/21/2024 8:33 PM EST Rai WALKER LAB URINE ORDERABLES Performing Organization Address [facility]/ZIP Co de Phone Number [facility] [address] [place] [address], [place] [phone] * Buprenorphine screen, urine (08/21/2024 8:05 PM EST) Buprenorphine Screen Urine Negative Negative LAB CHEMISTRY METHOD 08/21/2024 9:22 PM EST [facility] Urine Urine specimen obtained by clean catch procedure / Unknown Non-blood Collection / Unknown 08/21/2024 8:05 PM EST 08/21/2024 8:33 PM EST Narrative [facility] - 08/21/2024 9:22 PM EST Assay cutoff 5 ng/mL Semi-quantitative assay for screening purposes only. Unconfirmed screening result should not be used for non-medical purposes. *ALTERNATE METHOD CONFIRMATION DONE UPON REQUEST ONLY* Rai WALKER LAB URINE ORDERABLES [facility] [address] [place] [address], * (ABNORMAL) Drug abuse screen 8a panel, urine (08/21/2024 8:05 PM EST) Amphetamine Screen, Ur Negative Negative LAB CHEMISTRY METHOD 5 9:[address] [facility] Comment:Certain OTC medicati ons containing ephedrine, phenylephrine, pseudoephedrine and phenylpropanolamine can cause false positive results. Barbiturate Screen, Ur Negative Negative LAB CHEMISTRY METHOD 5 9:[address] [facility] Benzodiazepine Screen, Ur Negative Negative LAB CHEMISTRY METHOD 5 9:[address] [facility] Cocaine Screen, Ur Positive(A ) Negative LAB CHEMISTRY METHOD 5 9:[address] [facility] Opiate Screen, Ur Negative Negative LAB CHEMISTRY METHOD 5 9:[address] [facility] Cannabinoid (THC) Screen, Ur Negative Negative LAB CHEMISTRY METHOD 5 9:[address] [facility] Comment:Specimens from patie nts taking pantoprazole sodium (Protonix) have been shown to produce false positive results. Oxycodone Screen, Ur Negative Negative LAB CHEMISTRY METHOD 5 9:[address] [facility] Fentanyl, Ur Negative Negative LAB CHEMISTRY METHOD 5 9:[address] [facility] Urine Urine specimen obtained by clean catch procedure / Unknown Non-blood Collection / Unknown 08/21/2024 8:05 PM EST 08/21/2024 8:33 PM EST [facility] - 08/21/2024 9:14 PM EST Assay [...] ONLY* Agusto Rouse MD LAB URINE ORDERABLES [facility] [address] [place] [address], documented in this encounter Visit Diagnoses Diagnosis Schizoaffective disorder, depressive type (CMS/HCC)- Primary Schizoaffective disorder, unspecified condition Suicidal ideation documented in this encounter Administered Medications Inactive Administered Medications - up to 3 most recent administrations Medication Order MAR Action Action Date Dose Rate Site LORazepam (ATIVAN) tablet 0.5 mg 0.5 mg, oral, Every 8 hours PRN, anxiety, sleep, IN ED ONLY, Starting on Wed08/22/24 at 1754 OLANZapine (ZyPREXA) tablet 10 mg 10 mg, oral, Nightly, First dose on Wed08/22/24 at 2100 Given 08/22/2024 8:06 PM EST 10 mg documented in this encounter Active and Recently Administered Medications Times are shown in EST. Scheduled Medication Order 08/21/2024 08/22/2024 08/23/2024 OLANZapine (ZyPREXA) tablet 10 mg 10 mg, oral, Nightly, First dose on Wed08/22/24 at 2100 2005 (Given - Provider: Susu Agarwal RN) PRN Medication Order 08/21/2024 08/22/2024 08/23/2024 LORazepam (ATIVAN) tablet 0.5 mg 0.5 mg, oral, Every 8 hours PRN, anxiety, sleep, IN ED ONLY, Starting on Wed08/22/24 at 1754 documented in this encounter Orders Medications Ordered That Wiliam ht Not Have Been Administered Count Last Ordered Date First Ordered Date LORazepam (ATIVAN) tablet 0.5 mg 1 08/22/19 25 Nursing Count Last Ordered Date First Orde red Date ED INITIATE ATP 1 08/21/2024 Consult Count Last Ordered Date First Orde red Date IP CONSULT TO POWER STATION OPERATOR 1 08/21/2024 documented in this encounter Care Teams Reconnaissance Man Relationship Specialty Start Date End Date Physician, No Pcp PCP - General 08/21/24 documented as of this encounter
[2024-08-23 16:23] LABS: Alanine Aminotransferase 13 U/L (0-40); Albumin Level 3.5 g/dL (3.5-5.0); Alkaline Phosphatase 111 U/L (39-117); Anion Gap 10 (12-20); Aspartate Amino Transferase 26 U/L (5-37); Bilirubin Total 0.2 mg/dL (0.0-1.0); Blood Urea Nitrogen 8 mg/dL (9-16); Calcium 8.5 mg/dL (8.4-10.2); Carbon Dioxide 21 mmol/L (22-29); Chloride 112 mmol/L (96-108); Creatinine Clr Calc Pharmacy 117.9; Estimated Glomerular Filt Rate > 60; Glucose Random 98 mg/dL (60-115); Sodium 139 mmol/L (135-145)
--- NOTE | 2024-08-23 17:52 | HO.PM.IMCN ---
History of Present Illness Data of Consult Service Date: 08/23/24 Primary Care Provider: Unknown Physician HPI Reason for consult: Admission H&P Pt is a 54-year-old male with a PMH significant for?HLD, HTN, polysubstance use disorder, and schizophrenia who is admitted to [facility] psychiatry unit for SI/HI without specific plan. Pt apparently has been hearing auditory hallucinations commanding him to ?end my life and kill other people. . Medical consult for admission H&P. ?Pt seen and evaluated in his room where he is resting comfortably in bed. Pt appears irritated and confrontational when approached and declines full interview and exam. Does initially complain of right knee pain that he injured playing basketball. Initially requests extra strength Tylenol. However, pt refuses to answer follow up questions concerning onset of injury and eventually asks this interviewer to leave the room. Review of Systems Review of Systems: Right knee pain Otherwise no acute medical complaints [facility] Medical History Cocaine use disorder Alcohol use disorder Schizophrenia Polysubstance use disorder HLD (hyperlipidemia) HTN (hypertension) Social History Household Members: Other Housing: Homeless Do you presently have visiting nurse or other home services: No Patient Tobacco Use Status: Former Tobacco user Years Smoked: 18 years Smoked in Last 30 Days: Yes Patient Interested in Nicotine Replacement: No Patient Given Instructions on How to Stop Smoking: No Second Hand Smoke Exposure: No Use of substances other than those prescribed or required for medical reasons: Yes Substance Use Type: Crack/Cocaine Last Used Substance: Unknown Currently Displaying Signs/Symptoms of Drug Intoxication Withdrawal: No Any prior treatment program specific to substance use: No Have you been hit, kicked, punched, or otherwise hurt by someone within the past year? If so, by whom?: No Do you feel safe in your current relationship?: No Current Relationship Is there a partner from a previous relationship who is making you feel unsafe now?: No Advance Directives: No Advance Directives Information Provided: Yes Do you have a plan to hurt others: No Plan Recently lost weight without trying: No How much weight loss: Not applicable Eating poorly because of decreased appetite: No Nutrition screen score: 0 Nutrition Risks: No Nutritional Risk Poor oral hygiene: No service: No Sexual orientation: Straight/Heterosexual Meds Allergies Allergy/AdvReac Type Severity Reaction Status Date / Time Penicillins Allergy Rash Verified 07/07/23 17:57 Active Medications: Current Medications Acetaminophen (Acetaminophen 325 Mg Tablet) 650 mg PO Q6H PRN PRN Reason: Headache/Pain Mild Scale (1-3) Al Hydroxide/Mg Hydroxide (Magnesium Hydrox/Alum Hydrox 30 Ml Oral.Susp) 30 ml PO Q6H PRN PRN Reason: Heartburn/Nausea Amlodipine Besylate (Amlodipine Besylate 5 Mg Tablet) 5 mg PO DAILY RAJESH; Protocol Fluoxetine HCl (Fluoxetine Hcl 10 Mg Capsule) 10 mg PO DAILY RAJESH Hydrochlorothiazide (Hydrochlorothiazide 12.5 Mg Tablet) 12.5 mg PO DAILY RAJESH; Protocol Hydroxyzine HCl (Hydroxyzine Hcl 25 Mg Tablet) 25 mg PO Q6H PRN PRN Reason: Anxiety Magnesium Hydroxide (Milk Of Magnesia 30 Ml Oral.Susp) 30 ml PO DAILY PRN PRN Reason: Constipation Nicotine (Nicotine 21 Mg Patch.Td24) 21 mg TRANSDERMA DAILY PRN PRN Reason: smoking cessation Nicotine Polacrilex (Nicotine Polacrilex 2 Mg Gum) 4 mg BUCCAL Q2H PRN PRN Reason: Nicotine Cravings Olanzapine (Olanzapine 5 Mg Tablet) 5 mg PO TID PRN PRN Reason: agitation Olanzapine (Olanzapine 10 Mg Tablet) 10 mg PO BEDTIME RAJESH Trazodone HCl (Trazodone Hcl 50 Mg Tablet) 50 mg PO BEDTIME MRX1 PRN PRN Reason: Insomnia Physical Exam Vital Signs and Narrative: Vital Signs: Last Vital Signs Temp 97.3 F 08/23/24 13:40 Pulse 74 08/23/24 13:40 BP 158/102 H 08/23/24 13:40 Pulse Ox 99 08/23/24 13:40 O2 Del Method Room Air 08/23/24 13:40 BMI result Body Mass Index 26.8 Pt declines examination Results Labs 08/23/24 15:30 Labs: Laboratory Results - last 24 hr 08/23/24 15:30 Anion Gap 10 L Estim Creat Clear Calc 117.9 Estimated GFR > 60 Random Glucose 98 Calcium 8.5 Total Bilirubin 0.2 AST 26 ALT 13 Alkaline Phosphatase 111 Total Protein 7.0 Albumin 3.5 Assessment and Plan (1) Medical clearance for psychiatric admission: Status: Acute Plan Pt is a 54-year-old male with a PMH significant for?HLD, HTN, polysubstance use disorder, and schizophrenia who is admitted to [facility] psychiatry unit for SI/HI without specific plan. Pt apparently has been hearing auditory hallucinations commanding him to ?end my life and kill other people. . Medical consult for admission H&P. ? Mood disorder Plan as per Psychiatry Right knee pain Apparently injured playing basketball Tylenol p.r.n. Pt otherwise is not on any home medications. Will sign off for now. Thank you for allowing us to participate in the care of this pt. Please re-consult if any acute issue or need arises.
--- NOTE | 2024-08-23 17:55 | PC.ADMIT ---
Mr. Seth Emmanuel is a 54 year old man who was admitted from [facility] at 1:40pm on a 12B for decompensation (suicidal ideation, homicidal ideation and substance use- cocaine). Safety/skin check was unremarkable. He signed a CV upon admission then immediately requested to sign a 3 Day Notice, which he did. He reported that he did not have any intent but did have a plan which he did not share with this life insurance underwriter. He also reported auditory hallucinations that he could not fully understand, but that he KNEW they were commands to kill self and others. He reported that he is currently unhoused and living in [place] and has been off his meds for a few months. Upon reconciliation, [facility] on [address] said they had been filled on 05/09/24 but had never been picked up. 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 When this life insurance underwriter noted that his toxicology screen was positive for cocaine, he said, Well I must have touched it with my hands but I didn't use it. When this life insurance underwriter asked why he may have touched cocaine he responded, I must have touched it. That's all I am going to say. He denied other drug or alcohol use and described himself as a former cigarette smoker. When asked when he quit, he said 08/21/24 and insisted he was not interested in nicotine replacement. It is noteworthy that he said he would not come to staff if he felt like acting on his SI or HI, even after I repeated the question a second time. He declined the influenza vaccine. A smoking consult has been placed due to his recent habit which he said he had for 18 years.
[2024-08-23] MEDS: OLANZapine 10 MG TABLET PO (21:37)
[2024-08-23] MEDS: traZODone HCL 50 MG TABLET PO (21:40)
[2024-08-24 07:58] VITALS: BP 130/80; PULSE 70; RESP 18; TEMP 36.8; O2SAT 97
[2024-08-24] MEDS: hydroCHLOROthiazide 12.5 MG TABLET PO (08:47)
[2024-08-24] MEDS: amLODIPine Besylate 5 MG TABLET PO (08:48)
--- NOTE | 2024-08-24 09:01 | HO.PSYADMNOT ---
HPI Date of Service: 08/24/24 Chief Complaint: decompensation Sources of Information: patient interviewed, chart reviewed and crisis/core team assessment reviewed HPI Subjective Notes: [place] Warning, Conditional Voluntary and 3 Day Narrative: Patient is a 54-year-old male with history of schizophrenia, cocaine use disorder, HLD, HTN, who self presents to ED for AH and vague SI, in the face of non medication adherence and chronic, daily cocaine abuse. Patient is guarded, irritable and with limited willingness to participate in discussion. He says that he has been SI and hearing voices telling him to hurt himself and hurt other people; he denies any plans to do so. He says however that now that he is back on his medication voices are fading... Suicidal thoughts are fading and says that he would like to discharge soon. Patient does not want any treatment for substance abuse; he wants to remain on medications and asked for prescriptions but refuses outpatient provider appointments. He remains isolative, keeping to himself. Met with patient on 08/23/2024 Past Psychiatric History: Past psychiatric hospitalizations Medical Evaluation Reviewed: Yes [facility] Medical History (Updated 08/24/24 @ 09:46 by Go Boyle MD) Homeless Cocaine use disorder Alcohol use disorder Schizophrenia Polysubstance use disorder HLD (hyperlipidemia) HTN (hypertension) Family History: Deferred; will not discuss Social History: Currently homeless Has a sister who is supportive History of being incarcerated Substance History: daily crack cocaine use; chronic Trauma History: Deferred; will not discuss Diagnostics Vital Signs (24Hr): Vital Signs - 24 hr 08/23/24 13:40 08/24/24 07:58 Temperature 97.3 F 98.3 F Pulse Rate 74 70 Respiratory Rate 18 Blood Pressure 158/102 H 130/80 Pulse Oximetry 99 97 Oxygen Delivery Method Room Air Room Air BMI result Body Mass Index 26.8 Labs 08/23/24 15:30 Labs: Laboratory Results - last 48 hr 08/23/24 15:30 Sodium 139 Potassium 4.0 Chloride 112 H Carbon Dioxide 21 L Anion Gap 10 L BUN 8 L Creatinine 0.78 Estim Creat Clear Calc 117.9 Estimated GFR > 60 Random Glucose 98 Calcium 8.5 Total Bilirubin 0.2 AST 26 ALT 13 Alkaline Phosphatase 111 Total Protein 7.0 Albumin 3.5 Meds/Allergies Allergies Allergies Allergy/AdvReac Type Severity Reaction Status Date / Time Penicillins Allergy Rash Verified 07/07/23 17:57 Mental Status Exam Mental Status Exam Narrative: Pt is alert and oriented; behavior is guarded, irritable, calm, isolative patient is not in distress; dressed in hospital attire, unkempt; mood is described as irritable and affect congruent, constricted; eye contact avoidant; Speech is normal rate, volume and prosody and not pressured; no psychomotor agitation/retardation present; thought process is concrete, goal directed; Thought content is on tx and discharge; no delusional thinking expressed; says SI is fading and denies any HI. Says AH is fading. Patients insight and judgment impaired but likely heading towards baseline and adequate Assessment & Plan Assessment & Plan (1) Schizophrenia: Status: Acute Code(s): F20.9 - Schizophrenia, unspecified (2) Cocaine use disorder: Status: Acute Code(s): F14.10 - Cocaine abuse, uncomplicated (3) Homeless: Status: Acute Code(s): Z59.00 - Homelessness unspecified Plan Patient is a 54-year-old male with history of schizophrenia, cocaine use disorder, HLD, HTN, who self presents to ED for AH and vague SI in the face of non medication adherence and chronic, daily cocaine abuse. Patient is guarded, irritable and with limited willingness to participate in discussion. He says that he has been having suicidal ideations has been having AH of voices telling him to hurt himself and hurt other people; he denies any plans to do so. He says however that now that he is back on his medication voices are fading... Suicidal thoughts are fading and says that he would like to discharge soon. Patient does not want any treatment for substance abuse; he wants to remain on medications and asked for prescriptions but refuses outpatient provider appointments. He remains isolative, keeping to himself. Formulation/clinical reasoning: Patient has a similar presentation to past admissions. Discussed restarting medications which patient wants and he is back on Zyprexa and Prozac as well as anti-hypertensives. Patient says he started feel better and that SI and AH are resolving; he maintains he has no plans for hurting himself or anyone else. Patient is not interested in treatment other than getting back on medications and resolving symptoms and wants to discharge soon. Although irritable, he has been in behavioral and impulse control since get into the unit. He also demonstrates insight and judgment and that he self presented and is asking for the medications which he knows resolve his symptoms. Patient is appropriate for admission. Now back on medications it seems he is stabilizing. Once stabilized will proceed with discharge per patient request. Plan: Three day notice Q 15 minute checks Restarted Zyprexa 10 mg q.h.s. (has been on 15 mg in the past) Restarted Prozac 10 mg daily Restarted amlodipine Restarted hydrochlorothiazide Patient educated on: diagnosis, medication risk/benefits and substance abuse Informed Consent: understands and further education needed Reason for continued inpatient stay Substantial Risk for: rapid decompensation Statement Statement: I have reviewed the history and physical and performed a pertinent examination on my patient. No changes have occurred unless specified. If the History and Physical was not performed prior to admission, the Hospitalist's service will be consulted for completing the admission physical. Time Spent With Patient Time: Total time managing care of this patient today ____ minutes.
[2024-08-24] MEDS: traZODone HCL 50 MG TABLET PO (20:55)
[2024-08-25 08:00] VITALS: BP 139/81; PULSE 68; RESP 16; TEMP 37.2; O2SAT 97
[2024-08-25 10:20] VITALS: BP 136/80
[2024-08-25] MEDS: amLODIPine Besylate 5 MG TABLET PO (10:20)
[2024-08-25] MEDS: buPROPion HCl XL 150 MG TAB.ER.24H PO (10:20)
[2024-08-25] MEDS: hydroCHLOROthiazide 12.5 MG TABLET PO (10:23)
[2024-08-25] MEDS: Acetaminophen 325 MG TABLET 650 MG PO ×2 (10:23→21:00)
--- NOTE | 2024-08-25 18:29 | HO.PSYCHPN ---
Subjective Subjective Date of Service: 08/25/24 Reason For Visit: decompensation Interim History: met with pt; discussed with team pt reports feeling better and affect is noticeably brighter. Pt polite, calm, appropriate. He denies any SI/HI and says AH is all gone. Pt asks about discharge, wanting to leave tomorrow. He says no need for help w/ aftercare appointments and that he'll take care of this himself. Says he will find his own place to stay. Discussed medications and he says Wellbutrin is helpful and glad it was restarted; says does not want Prozac which was discontinued. Mental Status Exam Mental Status Exam Narrative: Pt is alert and oriented; behavior is calm, cooperative, polite; patient is not in distress; dressed in hospital attire with adequate hygiene; mood is better and affect noticeably brighter, calm; eye contact appropriate; Speech is normal rate, volume and prosody and not pressured; no psychomotor agitation/retardation present; thought process is concrete, goal directed; Thought content is on tx and discharge; no delusional thinking expressed; Denies SI/HI; Denies AH which he says is all gone. Patients insight and judgment fair. Diagnostics Vital Signs (24Hr): Vital Signs - 24 hr 08/25/24 08:00 08/25/24 10:20 Temperature 99 F Pulse Rate 68 Respiratory Rate 16 Blood Pressure 139/81 136/80 Pulse Oximetry 97 BMI result Body Mass Index 26.8 Labs 08/23/24 15:30 Medications Medications Current Medications Acetaminophen (Acetaminophen 325 Mg Tablet) 650 mg PO Q6H PRN PRN Reason: Headache/Pain Mild Scale (1-3) Last Admin: 08/25/24 10:23 Dose: 650 mg Al Hydroxide/Mg Hydroxide (Magnesium Hydrox/Alum Hydrox 30 Ml Oral.Susp) 30 ml PO Q6H PRN PRN Reason: Heartburn/Nausea Amlodipine Besylate (Amlodipine Besylate 5 Mg Tablet) 5 mg PO DAILY RAJESH; Protocol Last Admin: 08/25/24 10:20 Dose: 5 mg Bupropion HCl (Bupropion Hcl Xl 150 Mg Tab.Er.24h) 150 mg PO DAILY RAJESH Last Admin: 08/25/24 10:20 Dose: 150 mg Hydrochlorothiazide (Hydrochlorothiazide 12.5 Mg Tablet) 12.5 mg PO DAILY RAJESH; Protocol Last Admin: 08/25/24 10:23 Dose: 12.5 mg Hydroxyzine HCl (Hydroxyzine Hcl 25 Mg Tablet) 25 mg PO Q6H PRN PRN Reason: Anxiety Magnesium Hydroxide (Milk Of Magnesia 30 Ml Oral.Susp) 30 ml PO DAILY PRN PRN Reason: Constipation Naloxone HCl (Naloxone Hcl Nasal Take Home 4 Mg [place]) 8 mg NOSTRILALT ONCE ONE Stop: 08/26/24 09:01 Nicotine (Nicotine 21 Mg Patch.Td24) 21 mg TRANSDERMA DAILY PRN PRN Reason: smoking cessation Nicotine Polacrilex (Nicotine Polacrilex 2 Mg Gum) 4 mg BUCCAL Q2H PRN PRN Reason: Nicotine Cravings Olanzapine (Olanzapine 5 Mg Tablet) 5 mg PO TID PRN PRN Reason: agitation Olanzapine (Olanzapine 10 Mg Tablet) 10 mg PO BEDTIME RAJESH Last Admin: 08/24/24 20:55 Dose: Not Given Trazodone HCl (Trazodone Hcl 50 Mg Tablet) 50 mg PO BEDTIME MRX1 PRN PRN Reason: Insomnia Last Admin: 08/24/24 20:55 Dose: 50 mg Allergies Allergies Allergy/AdvReac Type Severity Reaction Status Date / Time Penicillins Allergy Rash Verified 07/07/23 17:57 Assessment & Plan Assessment & Plan (1) Schizophrenia: Status: Acute Code(s): F20.9 - Schizophrenia, unspecified (2) Cocaine use disorder: Status: Acute Code(s): F14.10 - Cocaine abuse, uncomplicated (3) Homeless: Status: Acute Code(s): Z59.00 - Homelessness unspecified Plan Patient is a 54-year-old male with history of schizophrenia, cocaine use disorder, HLD, HTN, who self presents to ED for AH and vague SI in the face of non medication adherence and chronic, daily cocaine abuse. Patient is guarded, irritable and with limited willingness to participate in discussion. He says that he has been having suicidal ideations has been having AH of voices telling him to hurt himself and hurt other people; he denies any plans to do so. He says however that now that he is back on his medication voices are fading... Suicidal thoughts are fading and says that he would like to discharge soon. Patient does not want any treatment for substance abuse; he wants to remain on medications and asked for prescriptions but refuses outpatient provider appointments. He remains isolative, keeping to himself. Formulation/clinical reasoning: Patient has a similar presentation to past admissions. Discussed restarting medications which patient wants and he is back on Zyprexa and Wellbutrin as well as anti-hypertensives. Patient says he started feel better and that SI and AH are resolving; he maintains he has no plans for hurting himself or anyone else. Patient is not interested in treatment other than getting back on medications and resolving symptoms and wants to discharge soon. Although irritable, he has been in behavioral and impulse control since get into the unit. He also demonstrates insight and judgment and that he self presented and is asking for the medications which he knows resolve his symptoms. Patient is appropriate for admission. Now back on medications it seems he is stabilizing. Once stabilized will proceed with discharge per patient request. Hospital course: 08/25 pt reports feeling better and affect is noticeably brighter. Pt polite, calm, appropriate. He denies any SI/HI and says AH is all gone. Pt asks about discharge, wanting to leave tomorrow. He says no need for help w/ aftercare appointments and that he'll take care of this himself. Says he will find his own place to stay. Discussed medications and he says Wellbutrin is helpful and glad it was restarted; says does not want Prozac which was discontinued. Pt is in good behavioral and impulse control. He is polite and appropriate with peers and staff. Reports symptoms have cleared, no SI and AH remains fully resolved. Pt is asking for discharge and does not want any help with aftercare. Pt of course remains vulnerable to relapse and decompensation, and given his itinerant life style, will likely again wander into unsafe situations. However, this is patients chronic pattern which will not resolve with longer inpt stay or further medication management. Pt is at baseline. He has placed a 3 day notice, wanting discharge. He is not in imminent risk of harm to self or others and request for dc honored. Plan: Three day notice Q 15 minute checks restarted wellbutrin continue Zyprexa 10 mg q.h.s. (has been on 15 mg in the past) dc Prozac; does not want continue amlodipine continue hydrochlorothiazide Patient educated on: diagnosis and medication risk/benefits Informed Consent: understands Reason for continued inpatient stay Substantial Risk for: stable for discharge Time Spent With Patient Time: Total time managing care of this patient today ____ minutes.
[2024-08-25] MEDS: traZODone HCL 50 MG TABLET PO (20:56)
[2024-08-25 21:00] VITALS: BP 136/77; PULSE 89; RESP 16; TEMP 36.4; O2SAT 96
[2024-08-26 08:00] VITALS: BP 137/91; PULSE 68; RESP 18; TEMP 36.5; O2SAT 98
[2024-08-26] MEDS: amLODIPine Besylate 5 MG TABLET PO (08:32)
[2024-08-26] MEDS: buPROPion HCl XL 150 MG TAB.ER.24H PO (08:32)
[2024-08-26] MEDS: hydroCHLOROthiazide 12.5 MG TABLET PO (08:32)
[2024-08-26] MEDS: Naloxone HCl Nasal TAKE HOME 4 MG SPRAY 8 MG NOSTRILALT (08:33)
--- NOTE | 2024-08-26 08:50 | HO.PSYCHPN ---
Subjective Subjective Date of Service: 08/26/24 Reason For Visit: decompensation Diagnostics Vital Signs (24Hr): Vital Signs - 24 hr 08/25/24 10:20 08/25/24 21:00 08/26/24 08:00 Temperature 97.5 F 97.7 F Pulse Rate 89 68 Respiratory Rate 16 18 Blood Pressure 136/80 136/77 137/91 H Pulse Oximetry 96 98 Oxygen Delivery Method Room Air Room Air BMI result Body Mass Index 26.8 Labs 08/23/24 15:30 Medications Medications Current Medications Acetaminophen (Acetaminophen 325 Mg Tablet) 650 mg PO Q6H PRN PRN Reason: Headache/Pain Mild Scale (1-3) Last Admin: 08/25/24 21:00 Dose: 650 mg Al Hydroxide/Mg Hydroxide (Magnesium Hydrox/Alum Hydrox 30 Ml Oral.Susp) 30 ml PO Q6H PRN PRN Reason: Heartburn/Nausea Amlodipine Besylate (Amlodipine Besylate 5 Mg Tablet) 5 mg PO DAILY [facility]; Protocol Last Admin: 08/26/24 08:32 Dose: 5 mg Bupropion HCl (Bupropion Hcl Xl 150 Mg Tab.Er.24h) 150 mg PO DAILY [facility] Last Admin: 08/26/24 08:32 Dose: 150 mg Hydrochlorothiazide (Hydrochlorothiazide 12.5 Mg Tablet) 12.5 mg PO DAILY [facility]; Protocol Last Admin: 08/26/24 08:32 Dose: 12.5 mg Hydroxyzine HCl (Hydroxyzine Hcl 25 Mg Tablet) 25 mg PO Q6H PRN PRN Reason: Anxiety Magnesium Hydroxide (Milk Of Magnesia 30 Ml Oral.Susp) 30 ml PO DAILY PRN PRN Reason: Constipation Naloxone HCl (Naloxone Hcl Nasal Take Home 4 Mg [place]) 8 mg NOSTRILALT ONCE ONE Stop: 08/26/24 09:01 Last Admin: 08/26/24 08:33 Dose: 8 mg Nicotine (Nicotine 21 Mg Patch.Td24) 21 mg TRANSDERMA DAILY PRN PRN Reason: smoking cessation Nicotine Polacrilex (Nicotine Polacrilex 2 Mg Gum) 4 mg BUCCAL Q2H PRN PRN Reason: Nicotine Cravings Olanzapine (Olanzapine 5 Mg Tablet) 5 mg PO TID PRN PRN Reason: agitation Olanzapine (Olanzapine 10 Mg Tablet) 10 mg PO BEDTIME [facility] Last Admin: 08/25/24 20:53 Dose: Not Given Trazodone HCl (Trazodone Hcl 50 Mg Tablet) 50 mg PO BEDTIME MRX1 PRN PRN Reason: Insomnia Last Admin: 08/25/24 20:56 Dose: 50 mg Allergies Allergies Allergy/AdvReac Type Severity Reaction Status Date / Time Penicillins Allergy Rash Verified 07/07/23 17:57 Assessment & Plan Assessment & Plan (1) Schizophrenia: Status: Acute Code(s): F20.9 - Schizophrenia, unspecified (2) Cocaine use disorder: Status: Acute Code(s): F14.10 - Cocaine abuse, uncomplicated (3) Homeless: Status: Acute Code(s): Z59.00 - Homelessness unspecified Plan Patient is a 54-year-old male with history of schizophrenia, cocaine use disorder, HLD, HTN, who self presents to ED for AH and vague SI in the face of non medication adherence and chronic, daily cocaine abuse. Patient is guarded, irritable and with limited willingness to participate in discussion. He says that he has been having suicidal ideations has been having AH of voices telling him to hurt himself and hurt other people; he denies any plans to do so. He says however that now that he is back on his medication voices are fading... Suicidal thoughts are fading and says that he would like to discharge soon. Patient does not want any treatment for substance abuse; he wants to remain on medications and asked for prescriptions but refuses outpatient provider appointments. He remains isolative, keeping to himself. Formulation/clinical reasoning: Patient has a similar presentation to past admissions. Discussed restarting medications which patient wants and he is back on Zyprexa and Prozac as well as anti-hypertensives. Patient says he started feel better and that SI and AH are resolving; he maintains he has no plans for hurting himself or anyone else. Patient is not interested in treatment other than getting back on medications and resolving symptoms and wants to discharge soon. Although irritable, he has been in behavioral and impulse control since get into the unit. He also demonstrates insight and judgment and that he self presented and is asking for the medications which he knows resolve his symptoms. Patient is appropriate for admission. Now back on medications it seems he is stabilizing. Once stabilized will proceed with discharge per patient request. Plan: Three day notice Q 15 minute checks Restarted Zyprexa 10 mg q.h.s. (has been on 15 mg in the past) Restarted Prozac 10 mg daily Restarted amlodipine Restarted hydrochlorothiazide Time Spent With Patient Time: Total time managing care of this patient today ____ minutes.
--- NOTE | 2024-08-26 09:00 | P.DS_ITS ---
DS: Providers Provider Date of Service: 08/26/24 Date of admission: 08/23/24 13:34 Date of discharge: 08/26/24 Primary care physician: Unknown Physician Attending physician on admission: Go Boyle Consults: 08/23/24 14:16 Consult to Hospitalist Routine Comment: Consulting Provider: [facility] Hospitalists Reason For Exam: admission physical Attending physician on discharge: Go Boyle DS: Diagnosis Discharge Diagnosis (1) Schizoaffective disorder, depressive type: Status: Acute (2) Cocaine use disorder: Status: Acute (3) Homeless: Status: Acute DS: Medications Discharge Medications Home Medications: Previous Rx's ?Medication ?Instructions ?Recorded amlodipine 5 mg tablet 5 mg PO DAILY 30 days #30 tabs 08/26/24 bupropion HCl 150 mg 24 hr tablet, 150 mg PO DAILY 30 days #30 tabs 08/26/24 extended release hydrochlorothiazide 12.5 mg tablet 12.5 mg PO DAILY 30 days #30 tabs 08/26/24 olanzapine 10 mg tablet 10 mg PO BEDTIME 30 days #30 tabs 08/26/24 trazodone 50 mg tablet 50 mg PO BEDTIME PRN insomnia 30 08/26/24 days #30 tabs Mental Status Exam Mental Status Exam Narrative: Pt is alert and oriented; behavior is calm, cooperative, polite; patient is not in distress; dressed in hospital attire with adequate hygiene; mood is euythymic affect congruent; eye contact appropriate; Speech is normal rate, volume and prosody and not pressured; no psychomotor agitation/retardation present; thought process is concrete, goal directed; Thought content WNL; no delusional thinking expressed; Denies SI/HI/AH; Patients insight and judgment fair. Data Data Completed and Pending Completed studies during hospitalization [Text1]: 08/23/24 15:30 Sodium 139 Potassium 4.0 Chloride 112 H Carbon Dioxide 21 L Anion Gap 10 L BUN 8 L Creatinine 0.78 Estim Creat Clear Calc 117.9 Estimated GFR > 60 Random Glucose 98 Calcium 8.5 Total Bilirubin 0.2 AST 26 ALT 13 Alkaline Phosphatase 111 Total Protein 7.0 Albumin 3.5 DS: Summary Hospital Course Hospital Course: Patient is a 54-year-old male with history of schizophrenia, cocaine use disorder, HLD, HTN, who self presents to ED for AH and vague SI in the face of non medication adherence and chronic, daily cocaine abuse. Patient is guarded, irritable and with limited willingness to participate in discussion. He says that he has been having suicidal ideations has been having AH of voices telling him to hurt himself and hurt other people; he denies any plans to do so. He says however that now that he is back on his medication voices are fading... Suicidal thoughts are fading and says that he would like to discharge soon. Patient does not want any treatment for substance abuse; he wants to remain on medications and asked for prescriptions but refuses outpatient provider appointments. He remains isolative, keeping to himself. Hospital course: Patient has a similar presentation to past admissions. Diagnosing with Schizoaffective disorder since has depression component. On admission, pt irritable, guarded and not wanting to interact other than to say he wanted to be restarted on medications and he agreed with restarting Zyprexa and Wellbutrin (eventually wanted prozac dc'd) as well as anti- hypertensives. He remained isolative, but gradually became more cooperative and said that with medications, both SI and AH were fading. Soon they both fully resolved and patient said he started feeling better. he maintains he has no plans for hurting himself or anyone else; pt signed 3 day. Although initially irritable, he remained in behavioral and impulse control on the unit. He also demonstrated insight and judgment in that he self presented, asking for the medications which he knows resolve his symptoms. By end of admission, pt reported feeling better and affect was noticeably brighter; still mostly keepi ng to himself, but no longer guarded and now polite, calm, appropriate. He continued to deny any SI/HI and says AH is all gone. Pt wanted to discharge and continued to decline help w/ aftercare appointments and that he'll take care of this himself. Says he will find his own place to stay. Impression: Pt is in good behavioral and impulse control. He is polite and appropriate with peers and staff. Reports symptoms have cleared, no SI and AH remains fully resolved. Pt is asking for discharge and does not want any help with aftercare. Pt of course remains vulnerable to relapse and decompensation, and given his itinerant life style, will likely again wander into unsafe situations. However, this is patients chronic pattern which will not resolve with longer inpt stay or further medication management. Pt is at baseline. He has placed a 3 day notice, wanting discharge. He is not in imminent risk of harm to self or others and request for dc honored. Medications: restarted wellbutrin xl 150mg daily restarted Zyprexa 10 mg q.h.s. restarted amlodipine 5mg daily restarted hydrochlorothiazide 12.5mg daily Time spent discussing smoking cessation with patient: 3 to 10 minutes Status at Discharge Functional status at discharge: independent ambulation Overall status at discharge: patient is back to baseline Time Spent with Patient Time attestation: Total time managing care of this patient today 40____ minutes. Time spent: Greater than 30 minutes Specific discharge activities: charting, scripts; discussed with nursing Discharge Plan Discharge Anticipated Discharge Date/Time: 08/26/24 10:00 Patient Disposition: Group Home Discharge Diagnosis: schizoaffective disorder, depressed type Referrals: [facility] [Other] - 1 Week (Group Home Resource ) [facility] [Other] - 1 Week (Group Home Resource You need to present prior to 5 pm to complete intake and to determine if bed is available) [facility] [Other] - 1 Week (Patient must call daily at 8:15 am to inquire about bed availability . Group Home resource ) [facility] ([facility]): [facility] [Other] - 1 Week (patient may self present for evaluation for psychiatry and therapy services Hours to self-present are Wednesday -Wednesday from 10 am- 12 pm. ) [facility] ([facility]): [facility] [Other] - 1 Week (patient may self present for evaluation to be connected to outpatient mental health services (therapy/psychiatry) Hours are Wednesday-Wednesday 8 am- 8 pm and Wednesday 9 am- 5 pm.) [facility] Crisis services. [Other] - 1 Week (Crisis Services Phone Number ) Physician,Unknown J [Primary Care Provider] - 1 Week Discharge Medications: New bupropion HCl 150 mg Tablet Extended Release 24 Hr 150 mg PO DAILY 30 Days Qty: 30 0RF amlodipine 5 mg tablet 5 mg PO DAILY 30 Days Qty: 30 0RF trazodone 50 mg tablet 50 mg PO BEDTIME PRN (Reason: insomnia) 30 Days Qty: 30 0RF hydrochlorothiazide 12.5 mg tablet 12.5 mg PO DAILY 30 Days Qty: 30 0RF Changed olanzapine 10 mg tablet 10 mg PO BEDTIME 30 Days Qty: 30 0RF Discontinued olanzapine 20 mg tablet 20 mg PO BEDTIME 30 Days Qty: 30 0RF fluoxetine 10 mg Capsule 10 mg PO DAILY 30 Days Qty: 30 0RF trazodone 50 mg Tablet 50 mg PO BEDTIME PRN (Reason: Insomnia) 30 Days Qty: 30 0RF Discharge Orders: Discharge Order (Routine); Ordered 08/26/24 Ordered By: Go Boyle Diet: Regular diet Activity on Discharge: As tolerated Stand Alone Forms: Patient Portal Discharge page Print Language: Albanian Care Plan Goals: Maintain mood and safe behaviors Take medications as prescribed Continue to pursue sobriety Practice coping skills Continue with outpatient providers and reach out to them as needed Health Concerns: Mood stability and behaviors Sobriety Hypertension Plan of Treatment: Follow up with your PCP, psychiatric provider and other outpatient providers regarding above concerns Take medications as prescribed Assessment: Risk assessment at time of discharge:? Patient was interviewed prior to discharge and found to be fully oriented and without any SI or HI. Patient has improved insight and judgment and wants to continue treatment. Patient is not in imminent risk of harm to self or others and has a safety plan that includes presenting to the closest ER or calling 911 if feeling unsafe.? Patient has been observed closely by nursing and unit staff throughout admission; patient has not engaged in any behaviors that suggest dangerousness to self or others and has demonstrated appropriate behaviors and impulse control
== END 2024-08-26 10:35 | disposition home or self-care (01) | DRG 750 ==
PROVIDERS: Admitting Provider Psychiatry & Neurology Psychiatry; Visit Provider Psychiatry & Neurology Psychiatry
DX: F20.9 Schizophrenia, unspecified (principal); E78.5 Hyperlipidemia, unspecified; F14.10 Cocaine abuse, uncomplicated; F19.90 Other psychoactive substance use, unspecified, uncomplicated; I10 Essential (primary) hypertension; Z59.02 Unsheltered homelessness; Z87.891 Personal history of nicotine dependence; Z79.899 Other long term (current) drug therapy
CPT/HCPCS: 36415; 80053

== ENCOUNTER → 2024-08-23 13:34 | Outpatient (BNV) | payer MEDICAID, SELFPAY | PROVIDERS: Admitting Provider Psychiatry & Neurology Psychiatry; Visit Provider Psychiatry & Neurology Psychiatry | DX: F20.9 Schizophrenia, unspecified (principal); F14.10 Cocaine abuse, uncomplicated; Z59.00 Homelessness unspecified | CPT/HCPCS: 90792 ==

== ENCOUNTER → 2024-08-23 13:34 | Outpatient (BNV) | payer MEDICAID, SELFPAY | PROVIDERS: Admitting Provider Psychiatry & Neurology Psychiatry; Visit Provider Student in an Organized Health Care Education/Training Program | DX: Z00.8 Encounter for other general examination (principal) | CPT/HCPCS: 99222 ==